=== PATIENT | female | born 2005 | race Caucasian/White ===

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

== ENCOUNTER 2025-01-24 14:20 | Emergency (ER) | payer BC, OTHER ==
--- OUTSIDE RECORDS SUMMARY | 2025-01-24 14:25 | XMS REPORT | Continuity of Care Document ---
Author Name Unknown Address [address] [place] [address] [facility] Address [address] [place] [address] Care Team Providers Care Cds Sales Advisor Name Role Phone Adeel Manning Primary Care Physician [phone] MITUL MEDINA Attending Clinician Unavailable ARTURO JACKSON Attending Clinician Unavailab Arturo Jarrett MD Attending Clinician NAZIA GRADY Attending Clinician UnavailNAZIA Moore Attending Clinician UnavailMonique Castro PTA Attending Clinician Unavail able Nazia Grady MD Attending Clinician [phone] IMTIAZ HILL Attending Clinician Unavailable Imtiaz Escalante Attending Clinician [phone] ARMANI MCGREGOR Attending Clinician Unavailable Quintin PTEwelina Attending Clinician Unavailab Damaris Arias PT Attending Clinician Unavailable KAYLIN HAYES Attending Clinician Unavailab Kaylin Levi DNP Attending Clinician Miryam HOUGH, Arturo Attending Clinician [phone] Montse Danielle LVN Attending Clinician [phone] Saad RN, Carmen Attending Clinician Unavail qing Jiménez MD PhD, Jordi Attending Clinician [phone] Lab, [facility] Attending Clinician Unavailable JOSE L BARRETT Attending Clinician UnavailMARITZA Han Attending Clinician Unavailab CURT Adamson Attending Clinician Unavailable Ebrahiflorencia SET UP PERSON, Curt Attending Clinician [phone] Unknown, Attending Attending Clinician Unavailab le Doctor Unassigned, Griswold Attending Clinician U navailable DALILA_GCBZW_Denisse_S Attending Clinician UnavailANGELA Carrillo Attending Clinician Unavailable RAFAT ROCK Attending Clinician Unavailable Pranav HOUGH, Rafat Attending Clinician [phone] Bear Melo MD Attending Clinician [phone] Provider, [facility] Attending Clinician Un available Iam Shelby Attending Clinician [phone] IAM MAZA Attending Clinician Unavailable IMTIAZ HILL Admitting Clinician Unavailable ARTURO JACKSON Admitting Clinician Unavailab evan Jackson MD, Arturo Admitting Clinician [phone] DALILA_GCBZW_Denisse_Kori Admitting Clinician UnavailRAFAT Figueroa Admitting Clinician Unavailable Payers Payer Name Policy Type Policy Number Effective Date Expirati on Date Source [employer] OPEN ACCESS/OPEN ACCESS PLUS [id number] 2016 00:00:00 [place] [id number] 2023 00:00:00 BCBS 2 [id number] 2023 00:00:[place] [id number] 2021 00:00:00 Problems Condition Name Condition Details Condition Category Status Onset Date Resolution Date Last Treatment Date Treating Clinician Comments Source Scoliosis deformity of spine Scoliosis Deformity of Spine Problem Active 2023-11 00:00: 00 [facility] Adolescent idiopathic scoliosis of thoracolum bar region Adolescent idiopathic scoliosis of thoracolum bar region Disease Active 4-30 00:00: 00 [facility] Left lower quadrant pain Left Lower Quadrant Pain Problem Active 4-17 00:00: 00 [facility] Mastodynia of bilateral breasts Mastodynia of Bilateral Breasts Problem Active 2022-11 1-06 00:00: 00 [facility] Irregular periods Irregular Periods Problem Active 2021-11 1-04 00:00: 00 [facility] Mild major depression , single episode Mild Major Depression , Single Episode Problem Active 7-08 00:00: 00 [facility] Primary dysmenorrh ea Primary Dysmenorrh ea Problem Active 5-17 00:00: 00 [facility] Venereal disease screening Venereal Disease Screening Problem Active 2020-11 1 00:00: 00 [facility] No known active problems No known active problems Disease [facility] Allergies, Adverse Reactions, Alerts Allergy Name Allergy Type Status Severity Reaction(s) Onset Date Inactive Date Treating Clinician Comments Source NO KNOWN ALLERGIE S Drug Class Active [facility] Social History Social Habit Start Date Stop Date Quantity Comments Source ASSERTION Possible Abigail Arboleda - External Sexual orientation K stephanie Arboleda - External Exposure to SARS-CoV-2 (event) Yes [facility] Gender identity [facility] Alcoholic beverage intake 2025-01-09 00:00:00 2025-01-09 00:00:00 Lifetime non-drinker (finding) [facility] History of Social function 2024-12-15 00:00:00 2024-12-15 00:00:00 Abigail Arboleda - External Tobacco use and exposure 2024-05-02 00:00:00 2024-05-02 00:00:00 User of smokeless tobacco [facility] Tobacco Comment 2024-05-02 00:00:00 2024-05-02 00:00:00 Vapes socially, wants to quit. [facility] Alcohol intake 2024-03-09 00:00:00 2024-03-09 00:00:00 Lifetime non-drinker (finding) [facility] Sex 2022-10-29 08:23:14 2022-10-29 08:23:14 Female (finding) Abigail Mast Sex assigned at 2005 00:00:00 2005 00:00:00 Abigail Mast Smoking Status Start Date Stop Date Source Tobacco smoking consumption unknown Abigail Rico darvin Never smoked tobacco [facility] Medications Ordered Medication Name Filled Medication Name Start Date Stop Date Current Medication? Ordering Clinician Indication Dosage Frequency Signature (SIG) Comments Components Source lidocain-me .salicyl-ca ps-menth (1ST MEDX-PATCH WITH LIDOCAINE) 4-20-0.025- 5 % PtMd 01-09 00:00: 00 01-09 00:00 :00 No [id number] 1{patch } Apply 1 Patch to area(s) once daily as needed (thoracic back pain). [facility] Multiple Vitamins-Mi nerals (WOMENS DAILY FORMULA OR) 12-15 09:16: 24 Yes Take by mouth. Abigail peter methylPREDN ISolone 4 MG oral Tablet Therapy Pack 12-15 00:00: 00 Yes [id number] 1{alyse} Take 1 alyse by mouth See Admin Instructio ns Use as directed. Abigail peter Triamcinolo ne Acetonide 0.1 % apply externally Cream 12-15 00:00: 00 01-13 05:59 :00 Yes [id number] Apply to rash twice a day. Abigail peter Loryna 3-0.02 MG oral Tablet 2023-11 00:00: 00 Yes 1{tbl} QD Take 1 tablet by mouth daily. Abigail peter famotidine (PEPCID AC) tablet 20 mg 05-05 01:00: 00 Yes 20mg 20 mg, Oral, BID, First dose on Graciela 05/04/24 at 1999, Until Discontinu ed, Routine [facility] docusate (COLACE) capsule 100 mg 05-04 05:00: 00 Yes 100mg [facility] bisacodyL (DULCOLAX) suppository 10 mg 05-04 05:00: 00 Yes 10mg [facility] Acetaminoph en (TYLENOL) 325 MG oral Tablet tablet 05-04 00:00: 00 12-15 00:00 :00 No 650mg Q6H Take 2 tablets (650 mg total) by mouth every 6 (six) hours. Abigail peter oxyCODONE 5 mg immediate release tablet 05-04 00:00: 00 05-12 04:59 :00 No [id number] 5mg Take 1 tablet by mouth every 6 (six) hours for 7 days. Indication s: acute pain [facility] docusate 100 mg capsule 05-04 00:00: 00 05-10 04:59 :00 No [id number] 100mg Take 1 capsule by mouth in the morning and 1 capsule in the evening. Do all this for 5 days. [facility] famotidine 20 mg tablet 05-04 00:00: 00 05-10 04:59 :00 No [id number] 20mg Take 1 tablet by mouth in the morning and 1 tablet in the evening. Do all this for 5 days. [facility] morpHINE (2 mg/mL) injection 4 mg 05-03 23:07: 46 05-05 23:06 :46 No 4mg 4 mg, Slow IV Push, Q4HPRN, Starting on Wed05/03/24 at 1807, Until Wed05/05/24 at 1806, Routine, Pain (scale 7-10) [facility] docusate (COLACE) capsule 100 mg 05-03 23:07: 26 Yes 100mg 100 mg, Oral, BIDPRN, Starting on Wed05/03/24 at 1807, Until Discontinu ed, Routine, Constipati on [facility] ondansetron (ZOFRAN (PF)) injection 5.46 mg 05-03 15:21: 26 Yes .1mg/kg 5.46 mg (rounded from 5.45 mg = 0.1 mg/kg ?54.5 kg), Slow IV Push, Q6HPRN, Starting on Wed05/03/24 at 1021, Until Discontinu ed, Routine, Nausea and Vomiting (N/V) [facility] oxyCODONE immediate release tablet 5 mg 05-02 12:15: 00 Yes 5mg 5 mg, Oral, Q6H, First dose on Wed05/02/24 at 0715, Until Discontinu ed, Routine, event staff member approving Restricted medication : ARTURO BUTTERFIELD [facility] acetaminoph en (TYLENOL) tablet 650 mg 05-02 12:15: 00 Yes 650mg 650 mg, Oral, Q6H, First dose on Wed05/02/24 at 0715, Until Discontinu ed, Routine [facility] famotidine (PEPCID (PF)) injection 20 mg 05-02 01:00: 00 05-04 13:42 :57 No 20mg 20 mg, Intravenou s, Q12H, First dose on Wed05/01/24 at 2000, Until Discontinu ed, 2 mL [facility] ketorolac (TORADOL) injection 27.2 mg 05-01 23:00: 00 05-03 18:18 :00 No .5mg/kg 27.2 mg (rounded from 27.25 mg = 0.5 mg/kg ?54.5 kg), Slow IV Push, Q6H, 8 doses, First dose on Wed05/01/24 at 1800, Last dose on Wed05/03/24 at 1200, Routine [facility] lactated ringers IV infusion 1,000 mL 05-01 22:30: 00 Yes 1000mL at 75 mL/hr, 1,000 mL, IV Infusion, CONTINUOUS , Starting on Wed05/01/24 at 1730, Until Discontinu ed, Routine, PACU [facility] D5W 0.9% NaCl (NS) 1 L + KCL 20 mEq 05-01 22:30: 00 Yes 50mL/h 50 mL/hr, IV Infusion, CONTINUOUS , Starting on Wed05/01/24 at 1730, Until Discontinu ed, Routine [facility] HYDROcodone -acetaminop hen (NORCO 5) 5-325 mg tablet 1 tablet 05-01 22:30: 00 05-01 22:52 :00 No 1{tbl} 1 tablet, Oral, ONCE, 1 dose, On Wed05/01/24 at 1730, Routine, PACU [facility] HYDROmorpho ne (DILAUDID) injection 0.5 mg 05-01 22:17: 41 05-02 01:46 :13 No .5mg 0.5 mg, Slow IV Push, Q5MIN PRN, 10 doses, Starting on Wed05/01/24 at 1717, Until Wed05/01/24 at 2046, Routine, Pain (scale 7-10), PACU, Use approved by (Faculty): PACU USE -ANESTHESI A SERVICE-HY DROMORPHON E INJECTIONS , Is this medication approved by a Faculty level provider? Yes, event staff member approving Restricted medication : PACU RECOVERY [facility] naloxone (NARCAN) injection 0.2 mg 05-01 22:14: 43 Yes .2mg [facility] diazePAM (VALIUM) tablet 5 mg 05-01 22:14: 43 Yes 5mg 5 mg, Oral, Q6HPRN, Starting on Wed05/01/24 at 1714, Until Discontinu ed, Routine, Anxiety, Muscle Spasms [facility] flumazeniL (ROMAZICON) injection 0.2 mg 05-01 22:14: 43 Yes .2mg [facility] diphenhydrA MINE (BENADRYL) injection 25 mg 05-01 22:14: 43 Yes 25mg [facility] morpHINE injection 4 mg 05-01 22:14: 43 05-03 22:13 :43 No 4mg 4 mg, Slow IV Push, Q4HPRN, Starting on Wed05/01/24 at 1714, Until Wed05/03/24 at 1713, Routine, Pain (scale 7-10) [facility] ondansetron (ZOFRAN (PF)) injection 5.46 mg 05-01 22:14: 43 05-03 15:21 :37 No .1mg/kg 5.46 mg (rounded from 5.45 mg = 0.1 mg/kg ?54.5 kg), Slow IV Push, Q8HPRN, Starting on Wed05/01/24 at 1714, Until Wed05/03/24 at 1021, Routine, Nausea and Vomiting (N/V) [facility] vancomycin (VANCOCIN) injection 05-01 21:45: 00 Yes PRN, Starting on Wed05/01/24 at 1645, Until Discontinu ed, PETEY, Intra-op [facility] ondansetron (ZOFRAN (PF)) injection 05-01 21:18: 00 05-01 22:30 :11 No Slow IV Push, ONCE INTRA PROCEDURE, Starting on Wed05/01/24 at 1618, Until Wed05/01/24 at 1730, Routine, Intra-op [facility] BUPivacaine liposome (PF) (EXPAREL (PF)) 1.3 % (13.3 mg/mL) 266 mg, NaCl 0.9% (NS) 20 mL 05-01 20:25: 00 Yes PRN, Starting on Wed05/01/24 at 1525, Intra-op [facility] albumin (ALBUTEIN 5 %) 5 % injection 05-01 14:47: 00 05-01 22:30 :11 No IV Infusion, CONTINUOUS PRN, Starting on Wed05/01/24 at 0947, Until Wed05/01/24 at 1730, Intra-op [facility] heparin 10,000 units in NS 1000 mL for vascular 05-01 14:16: 00 Yes PRN, Starting on Wed05/01/24 at 0916, Intra-op [facility] tranexamic acid (CYKLOKAPRO N) 1,000 mg in NaCl 0.9% (NS) 250 mL infusion 05-01 14:00: 00 05-01 22:30 :11 No IV Infusion, CONTINUOUS PRN, Starting on Wed05/01/24 at 0900, Until Wed05/01/24 at 1730, Routine, Intra-op [facility] rocuronium (ZEMURON) injection 05-01 13:48: 00 05-01 22:30 :12 No IV Push, ONCE INTRA PROCEDURE, Starting on Wed05/01/24 at 0848, Until Wed05/01/24 at 1730, Routine, Intra-op [facility] glycopyrrol ate (ROBINUL) injection 05-01 13:47: 00 05-01 22:30 :12 No Intravenou s, ONCE INTRA PROCEDURE, Starting on Wed05/01/24 at 0847, Until Wed05/01/24 at 1730, Routine, Intra-op [facility] PHENYLephri ne 1000 mcg/10 mL in 0.9% NaCl syringe 05-01 13:46: 00 05-01 22:30 :12 No Slow IV Push, ONCE INTRA PROCEDURE, Starting on Wed05/01/24 at 0846, Until Wed05/01/24 at 1730, Routine, Intra-op [facility] lidocaine-e pinephrine (XYLOCAINE WITH EPINEPHRINE ) 1 %-1:100,000 injection 05-01 13:39: 00 Yes PRN, Starting on Wed05/01/24 at 0839, Until Discontinu ed, Routine, Intra-op [facility] ketamine (KETALAR) injection 05-01 13:33: 00 05-01 22:30 :12 No Intravenou s, ONCE INTRA PROCEDURE, Starting on Wed05/01/24 at 0833, Until Wed05/01/24 at 1730, Routine, Intra-op [facility] ePHEDrine 25 mg/5 mL (5 mg/mL) syringe 05-01 13:31: 00 05-01 22:30 :12 No Intravenou s, ONCE INTRA PROCEDURE, Starting on Wed05/01/24 at 0831, Until Wed05/01/24 at 1730, Routine, Intra-op [facility] tranexamic acid (CYKLOKAPRO N) 1,000 mg in NaCl 0.9% (NS) 100 mL piggyback 05-01 13:17: 00 05-01 22:30 :12 No IV Piggyback, CONTINUOUS PRN, Starting on Wed05/01/24 at 0817, Until Wed05/01/24 at 1730, Administer over 60 Minutes, 100 mL, Intra-op [facility] ceFAZolin (ANCEF) injection 05-01 13:14: 00 05-01 22:30 :12 No Intravenou s, ONCE INTRA PROCEDURE, Starting on Wed05/01/24 at 0814, Until Wed05/01/24 at 1730, PETEY, Intra-op [facility] dexamethaso ne (DECADRON PHOSPHATE) injection 05-01 12:34: 00 05-01 22:30 :12 No IV Push, ONCE INTRA PROCEDURE, Starting on Wed05/01/24 at 0734, Until Wed05/01/24 at 1730, Routine, Intra-op [facility] lactated ringers IV infusion 05-01 12:33: 00 05-01 22:30 :12 No IV Infusion, CONTINUOUS PRN, Starting on Wed05/01/24 at 0733, Until Wed05/01/24 at 1730, Routine, Intra-op [facility] SUFentanil (SUFENTA) injection 05-01 12:33: 00 05-01 22:30 :12 No Intravenou s, CONTINUOUS PRN, Starting on Wed05/01/24 at 0733, Until Wed05/01/24 at 1730, Routine, Intra-op [facility] propofoL IV infusion 05-01 12:33: 00 05-01 22:30 :12 No Intravenou s, CONTINUOUS PRN, Starting on Wed05/01/24 at 0733, Until Wed05/01/24 at 1730, Routine, Intra-op [facility] succinylcho line (QUELICIN) injection 05-01 12:26: 00 05-01 22:30 :12 No IV Push, ONCE INTRA PROCEDURE, Starting on Wed05/01/24 at 0726, Until Wed05/01/24 at 1730, Routine, Intra-op [facility] lactated ringers IV infusion 05-01 12:25: 00 05-01 22:30 :12 No IV Infusion, CONTINUOUS PRN, Starting on Wed05/01/24 at 0725, Until Wed05/01/24 at 1730, Routine, Intra-op [facility] lidocaine 1% (XYLOCAINE) 100 mg/10 mL (1 %) injection 05-01 12:25: 00 05-01 22:30 :12 No Intravenou s, ONCE INTRA PROCEDURE, Starting on Wed05/01/24 at 0725, Until Wed05/01/24 at 1730, Routine, Intra-op [facility] midazolam (VERSED) injection 05-01 12:12: 00 05-01 22:30 :12 No IV Push, ONCE INTRA PROCEDURE, Starting on Wed05/01/24 at 0712, Until Wed05/01/24 at 1730, Routine, Intra-op [facility] acetaminoph en (TYLENOL) tablet 1,000 mg 05-01 10:15: 00 05-01 11:18 :00 No 1000mg 1,000 mg, Oral, ONCE, 1 dose, On Wed05/01/24 at 0515, Routine, DSU Pre-op [facility] VAZQUEZ, 28, 3-0.02 mg per tablet 3-12 00:00: 00 05-04 00:00 :00 No 1{tbl} Take 1 tablet by mouth in the morning. [facility] Ciprofloxac in HCl 0.3 % ophthalmic Solution 2-26 00:00: 00 01-22 05:59 :00 No [id number] 2[drp] Apply 2 drops to eye every 4 (four) hours for 5 days Drop into affected eye.. Abigail mcgill 250 MG oral Tablet 2022-11 00:00: 00 10-10 05:59 :00 No Take only after 5 days if symptoms still persisting . Take 2 tablets by mouth on day 1 then 1 tablet by mouth daily for 4 days thereafter .. Abigail peter ketorolac (TORADOL) injection 30 mg 05-19 11:15: 00 05-19 10:45 :00 No 30mg 30 mg, Slow IV Push, ONCE, 1 dose, On Wed05/19/23 at 0615, PETEY [facility] iopamidol (ISOVUE 370-500 mL) injection 70 mL 05-19 10:45: 00 05-19 09:54 :00 No [id number] 70mL 70 mL, Intravenou s, ONCE, 1 dose, On Wed05/19/23 at 0545, Routine [facility] Famotidine (PEPCID) 20 MG oral tablet 05-19 00:00: 00 12-15 00:00 :00 No 20mg Q.5D Take 1 tablet (20 mg total) by mouth 2 times daily. Abigail peter naproxen 500 mg tablet 05-19 00:00: 00 05-30 04:59 :00 No [id number] 500mg Take 1 tablet by mouth in the morning and 1 tablet in the evening. Take with meals. Do all this for 10 days. [facility] fluticasone propionate 50 mcg/actuati on nasal spray 02-16 00:00: 00 05-04 00:00 :00 No [id number] 1 spray each nostril twice a day for 5 days then daily [facility] albuterol sulfate HFA 90 mcg/actuati on aerosol inhaler INHALE 1-2 PUFFS BY MOUTH EVERY 4-6 HOURS NEEDED albuterol sulfate HFA 90 mcg/actuati on aerosol inhaler INHALE 1-2 PUFFS BY MOUTH EVERY 4-6 HOURS NEEDED No albuterol sulfate HFA 90 mcg/actuat ion aerosol inhaler INHALE 1-2 PUFFS BY MOUTH EVERY 4-6 HOURS NEEDED [facility] Loryna (28) 3 mg-0.02 mg tablet TAKE 1 TABLET BY MOUTH EVERY DAY Loryna (28) 3 mg-0.02 mg tablet TAKE 1 TABLET BY MOUTH EVERY DAY No Loryna (28) 3 mg-0.02 mg tablet TAKE 1 TABLET BY MOUTH EVERY DAY [facility] Vital Signs Vital Name Observation Time Observation Value Comments S ource Systolic blood pressure 2025-01-09 22:10:00 118 mm[Hg] [facility] Diastolic blood pressure 2025-01-09 22:10:00 77 mm[Hg] [facility] Heart rate 2025-01-09 22:10:00 137 /min [facility] Body temperature 2025-01-09 22:10:00 36.89 Cherelle [facility] Body height 2025-01-09 22:10:00 175.3 cm [facility] Body weight 2025-01-09 22:10:00 58.333 kg [facility] BMI 2025-01-09 22:10:00 18.99 kg/m2 [facility] Systolic blood pressure 2025-01-04 19:50:00 100 mm[Hg] [facility] Diastolic blood pressure 2025-01-04 19:50:00 64 mm[Hg] [facility] Heart rate 2025-01-04 19:50:00 71 /min [facility] Body temperature 2025-01-04 19:50:00 36.89 Cherelle [facility] Respiratory rate 2025-01-04 19:50:00 18 /min [facility] Oxygen saturation in Arterial blood by Pulse oximetry 2025-01-04 19:50:00 100 /min [facility] Body height 2025-01-04 17:58:00 175.3 cm [facility] Body weight 2025-01-04 17:58:00 56.7 kg [facility] BMI 2025-01-04 17:58:00 18.46 kg/m2 [facility] Systolic blood pressure 2024-12-15 15:10:00 100 mm[Hg] Abigail Payan - External Diastolic blood pressure 2024-12-15 15:10:00 68 mm[Hg] Abigail Clarko ld - External Heart rate 2024-12-15 15:10:00 79 /min Izabel Arboleda - External Body temperature 2024-12-15 15:10:00 36.5 Cherelle Abigail Arboleda - External Respiratory rate 2024-12-15 15:10:00 14 /min Abigail Arboleda - External Body height 2024-12-15 15:10:00 175.3 cm Juany oliveros Seybtayo - External Body weight 2024-12-15 15:10:00 58.06 kg Juany oliveros Seybold - External BMI 2024-12-15 15:10:00 18.90 kg/m2 Juany Arboleda - External Oxygen saturation in Arterial blood by Pulse oximetry 2024-12-15 15:10:00 94 /min Abigail Payan ld - External Systolic blood pressure 2024-11-09 17:37:00 100 mm[Hg] [facility] Diastolic blood pressure 2024-11-09 17:37:00 62 mm[Hg] [facility] Heart rate 2024-11-09 17:37:00 85 /min [facility] Body temperature 2024-11-09 17:37:00 36.11 Cherelle [facility] Body height 2024-11-09 17:37:00 175.3 cm [facility] Body weight 2024-11-09 17:37:00 56.246 kg [facility] BMI 2024-11-09 17:37:00 18.31 kg/m2 [facility] Body Weight 2024-09-28 00:00:00 120.6 [lb_av] [facility] BMI (Body Mass Index) 2024-09-28 00:00:00 17.8 kg/m2 [facility] BP Diastolic 2024-09-28 00:00:00 66 mm[Hg] [facility] BP Systolic 2024-09-28 00:00:00 105 mm[Hg] [facility] Height 2024-09-28 00:00:00 69 [in_i] [facility] Systolic blood pressure 2024-08-10 20:14:00 97 mm[Hg] [facility] Diastolic blood pressure 2024-08-10 20:14:00 60 mm[Hg] [facility] Heart rate 2024-08-10 20:14:00 73 /min [facility] Body temperature 2024-08-10 20:14:00 36.61 Cherelle [facility] Body height 2024-08-10 20:14:00 175.3 cm [facility] Body weight 2024-08-10 20:14:00 55.203 kg [facility] BMI 2024-08-10 20:14:00 17.97 kg/m2 [facility] Body mass index (BMI) [Percentile] Per age and sex 2024-08-10 20:14:00 6.50 % [facility] Systolic blood pressure 2024-06-08 20:14:00 90 mm[Hg] [facility] Diastolic blood pressure 2024-06-08 20:14:00 55 mm[Hg] [facility] Heart rate 2024-06-08 20:14:00 84 /min [facility] Body temperature 2024-06-08 20:14:00 36.39 Cherelle [facility] Body height 2024-06-08 20:14:00 172.7 cm [facility] Body weight 2024-06-08 20:14:00 53.978 kg [facility] BMI 2024-06-08 20:14:00 18.09 kg/m2 [facility] Body mass index (BMI) [Percentile] Per age and sex 2024-06-08 20:14:00 7.65 % [facility] Systolic blood pressure 2024-05-11 20:21:00 89 mm[Hg] [facility] Diastolic blood pressure 2024-05-11 20:21:00 58 mm[Hg] [facility] Heart rate 2024-05-11 20:21:00 80 /min [facility] Body temperature 2024-05-11 20:21:00 35.83 Cherelle [facility] Body height 2024-05-11 20:21:00 172.7 cm [facility] Body weight 2024-05-11 20:21:00 55.339 kg [facility] BMI 2024-05-11 20:21:00 18.55 kg/m2 [facility] Body mass index (BMI) [Percentile] Per age and sex 2024-05-11 20:21:00 12.01 % [facility] Systolic blood pressure 2024-05-04 13:00:00 108 mm[Hg] [facility] Diastolic blood pressure 2024-05-04 13:00:00 48 mm[Hg] [facility] Heart rate 2024-05-04 13:00:00 58 /min [facility] Body temperature 2024-05-04 13:00:00 36.5 Cherelle [facility] Respiratory rate 2024-05-04 13:00:00 20 /min [facility] Oxygen saturation in Arterial blood by Pulse oximetry 2024-05-04 13:00:00 92 /min [facility] Body height 2024-05-01 10:53:00 172.7 cm [facility] Body weight 2024-05-01 10:53:00 54.5 kg [facility] BMI 2024-05-01 10:53:00 18.27 kg/m2 [facility] Body mass index (BMI) [Percentile] Per age and sex 2024-05-01 10:53:00 9.36 % [facility] Systolic blood pressure 2024-05-01 22:23:00 106 mm[Hg] [facility] Diastolic blood pressure 2024-05-01 22:23:00 61 mm[Hg] [facility] Heart rate 2024-05-01 22:23:00 76 /min [facility] Body temperature 2024-05-01 22:23:00 36.11 Cherelle [facility] Respiratory rate 2024-05-01 22:23:00 17 /min [facility] Oxygen saturation in Arterial blood by Pulse oximetry 2024-05-01 22:23:00 100 /min [facility] Body height 2024-05-01 10:53:00 172.7 cm [facility] Body weight 2024-05-01 10:53:00 54.5 kg [facility] BMI 2024-05-01 10:53:00 18.27 kg/m2 [facility] Body mass index (BMI) [Percentile] Per age and sex 2024-05-01 10:53:00 9.36 % [facility] Systolic blood pressure 2024-03-09 13:58:00 102 mm[Hg] [facility] Diastolic blood pressure 2024-03-09 13:58:00 69 mm[Hg] [facility] Heart rate 2024-03-09 13:58:00 82 /min Un[facility] Body temperature 2024-03-09 13:58:00 35.94 Cherelle [facility] Body height 2024-03-09 13:58:00 172.7 cm [facility] Body weight 2024-03-09 13:58:00 54.432 kg [facility] BMI 2024-03-09 13:58:00 18.25 kg/m2 [facility] Body mass index (BMI) [Percentile] Per age and sex 2024-03-09 13:58:00 9.47 % [facility] BP Diastolic 2024-03-08 00:00:00 67 mm[Hg] [facility] BMI (Body Mass Index) 2024-03-08 00:00:00 18 kg/m2 [facility] Height 2024-03-08 00:00:00 69 [in_i] [facility] BP Systolic 2024-03-08 00:00:00 114 mm[Hg] [facility] Body Weight 2024-03-08 00:00:00 121.6 [lb_av] [facility] Systolic blood pressure 2023-08-31 14:44:00 99 mm[Hg] [facility] Diastolic blood pressure 2023-08-31 14:44:00 64 mm[Hg] [facility] Heart rate 2023-08-31 14:44:00 88 /min [facility] Body temperature 2023-08-31 14:44:00 36.72 Cherelle [facility] Respiratory rate 2023-08-31 14:44:00 18 /min [facility] Body weight 2023-08-31 14:44:00 56.972 kg [facility] Oxygen saturation in Arterial blood by Pulse oximetry 2023-08-31 14:44:00 98 /min [facility] Systolic blood pressure 2023-05-19 11:00:00 103 mm[Hg] [facility] Diastolic blood pressure 2023-05-19 11:00:00 64 mm[Hg] [facility] Heart rate 2023-05-19 11:00:00 54 /min [facility] Respiratory rate 2023-05-19 11:00:00 19 /min [facility] Oxygen saturation in Arterial blood by Pulse oximetry 2023-05-19 11:00:00 99 /min [facility] Body temperature 2023-05-19 05:30:00 37.22 Cherelle [facility] Body height 2023-05-19 05:30:00 175.3 cm [facility] Body weight 2023-05-19 05:30:00 55.702 kg [facility] BMI 2023-05-19 05:30:00 18.13 kg/m2 [facility] Body mass index (BMI) [Percentile] Per age and sex 2023-05-19 05:30:00 10.46 % [facility] Systolic blood pressure 2021-02-16 21:07:00 124 mm[Hg] [facility] Diastolic blood pressure 2021-02-16 21:07:00 75 mm[Hg] [facility] Heart rate 2021-02-16 21:07:00 87 /min [facility] Body temperature 2021-02-16 21:07:00 36.83 Cherelle [facility] Respiratory rate 2021-02-16 21:07:00 20 /min [facility] Body height 2021-02-16 21:07:00 172.7 cm [facility] Body weight 2021-02-16 21:07:00 57.777 kg [facility] BMI 2021-02-16 21:07:00 19.37 kg/m2 [facility] Oxygen saturation in Arterial blood by Pulse oximetry 2021-02-16 21:07:00 100 /min [facility] Procedures Procedure Date / Time Performed Performing Clinician Source POCT TEST 2025-01-04 18:33:00 Imtiaz Hill [facility] LIPASE 2025-01-04 18:31:00 Imtiaz Hill [facility] TROPONIN I 2025-01-04 18:31:00 Imtiaz Hill [facility] COMP. METABOLIC PANEL (97031) 2025-01-04 18:31:00 Imtiaz Hill [facility] CBC WITH DIFF 2025-01-04 18:31:00 Imtiaz Hill [facility] D-DIMER 2025-01-04 18:31:00 Imtiaz Hill [facility] URINALYSIS 2025-01-04 18:31:00 Imtiaz Hill [facility] XR CHEST 2 2025-01-04 18:16:59 Imtiaz Hill [facility] XR SCOLIOSIS SURVEY 2 2024-11-09 17:25:50 Haleigh salvador [facility] XR SCOLIOSIS SURVEY 2 2024-08-10 19:09:09 Haleigh salvador [facility] XR SCOLIOSIS SURVEY 2 2024-06-08 20:26:54 Kaylin Hayes [facility] CBC WITHOUT DIFF 2024-05-04 06:00:00 [facility] PREPARE PACKED RBC 2024-05-03 14:43:50 [facility]OS[facility] SURVE[facility] 2 2024-05-03 14:20:00 Yash Rodarte [facility] CBC WITHOUT DIFF 2024-05-03 12:27:00 Claus Aguila [facility] PHOSPHORUS 2024-05-02 11:51:00 Yash Rodarte [facility] MAGNESIUM 2024-05-02 11:51:00 Yash Rodarte [facility] BASIC METABOLIC PANEL (NA, K, CL, CO2, GLUCOSE, BUN, CREATININE, CA) 2024-05-02 11:51:00 [facility] WITH [facility]FF 2024-05-02 11:51:00 aYsh Rodarte [facility] PHOSPHORUS 2024-05-02 11:51:00 Yash Rodarte [facility] MAGNESIUM 2024-05-02 11:51:00 Yash Rodarte [facility] BASIC METABOLIC PANEL (NA, K, CL, CO2, GLUCOSE, BUN, CREATININE, CA) 2024-05-02 11:51:00 Cayden [facility] CBC WITH DIFF 2024-05-02 11:51:00 Cayden [facility] CBC WITH DIFF 2024-05-01 23:13:00 Cayden [facility] CBC WITH DIFF 2024-05-01 23:13:00 Cayden [facility] FL TIME OR (NON-REPORTABLE) 2024-05-01 21:14:11 Miryam [facility] FL TIME OR (NON-REPORTABLE) 2024-05-01 21:14:11 Miryam [facility] VBG+VCOOX+NA+K+GLU+CA2+ 2024-05-01 20:30:00 Rose Mary delgadillo [facility] VBG+VCOOX+NA+K+GLU+CA2+ 2024-05-01 18:21:00 Rose Mary delgadillo [facility] FL TIME OR (NON-REPORTABLE) 2024-05-01 18:00:00 Miryam [facility] FL TIME OR (NON-REPORTABLE) 2024-05-01 18:00:00 Miryam [facility] VBG+VCOOX+NA+K+GLU+CA2+ 2024-05-01 16:28:00 Rose Mary delgadillo [facility] VBG+VCOOX+NA+K+GLU+CA2+ 2024-05-01 15:41:00 Rose Mary delgadillo [facility] INTUBATION 2024-05-01 12:28:00 John Gan [facility] 14068 - DE ARTHRODESIS POSTERIOR SPINAL DFRM 13+ VRT SG 2024-05-01 12:03:00 Miryam [facility] 68317 - DE AUTOGRAFT SPINE SURGERY LOCAL FROM SAME INCISION 2024-05-01 12:03:00 Miryam [facility] 34710 - DE STEREOTACTIC COMPUTER ASSISTED PX SPINAL 2024-05-01 12:03:00 Miryam [facility] 57451 - DE ALLOGRAFT FOR SPINE SURGERY ONLY MORSELIZED 2024-05-01 12:03:00 Miryam [facility] 13482 - DE OSTEOTOMY SPINE PST/PSTLAT APPR 1 VRT SGM THRC 2024-05-01 12:03:00 Miryam [facility] 29657 - DE OSTEOT SPI PST/PSTLAT APPR 1 VRT SGM EA VRT SG 2024-05-01 12:03:00 Miryam [facility] 85746 - DE POSTERIOR SEGMENTAL INSTRUMENTATION 13/> VRT SE 2024-05-01 12:03:00 Miryam [facility] 41813 - [place] ARTHRODESIS POSTERIOR SPINAL DFRM 13+ VRT [facility] 2024-05-01 12:03:00 Miryam [facility] 25423 - DE AUTOGRAFT SPINE SURGERY LOCAL FROM SAME INCISION 2024-05-01 12:03:00 Miryam [facility] 74780 - DE STEREOTACTIC COMPUTER ASSISTED PX SPINAL 2024-05-01 12:03:00 Miryam [facility] 12248 - DE ALLOGRAFT FOR SPINE SURGERY ONLY MORSELIZED 2024-05-01 12:03:00 Miryam [facility] 18978 - DE OSTEOTOMY SPINE PST/PSTLAT APPR 1 VRT SGM THRC 2024-05-01 12:03:00 Carloskristine [facility] 23950 - DE OSTEOT SPI PST/PSTLAT APPR 1 VRT SGM EA VRT SGM 2024-05-01 12:03:00 Miryam [facility] 94335 - DE POSTERIOR SEGMENTAL INSTRUMENTATION 13/> VRT SE 2024-05-01 12:03:00 Miryam [facility] HB ABO GROUPING 2024-05-01 11:15:00 Estrella [facility] HB ABO GROUPING 2024-05-01 11:15:00 Estrella [facility] POCT TEST 2024-05-01 10:45:00 Estrella [facility] POCT TEST 2024-05-01 10:45:00 Estrella [facility] Correction of Scoliosis 2024-05-01 00:00:00 [facility] XR SCOLIOSIS SURVEY 2 VW 2024-03-09 13:57:31 Haleigh salvador [facility] POCT MOLECULAR FLU 2023-08-31 15:04:00 Unknown, Attend [facility] POCT MOLECULAR STREP 2023-08-31 14:50:00 Unknown, Atte pauline [facility] CONSENT/REFUSAL FOR DIAGNOSIS AND TREATMENT 2023-08-31 14:38:41 Doctor Unassigned, Griswold [facility] ASSIGNMENT OF BENEFITS 2023-06-07 20:05:04 Docto r Unassigned, Griswold [facility] POCT TEST 2023-05-19 10:44:00 Jose Rock [facility] URINALYSIS 2023-05-19 10:17:00 Rafat Rock [facility] TROPONIN I 2023-05-19 10:11:00 Rafat Rock [facility] COMP. METABOLIC PANEL (05841) 2023-05-19 10:11:00 Rafat Rock [facility] CBC WITH DIFF 2023-05-19 10:11:00 Rafat Rock [facility] PROTHROMBIN TIME / INR 2023-05-19 10:11:00 Seun Rock [facility] ACTIVATED PARTIAL THRMPLAS OSVALDO 2023-05-19 10:11:00 Rafat Rock [facility] ASSIGNMENT OF BENEFITS 2023-05-19 06:34:25 Docto r Unassigned, Griswold [facility] NOTICE OF PRIVACY PRACTICES 2023-05-19 05:28:19 Doctor Unassigned, Griswold [facility] CONSENT/REFUSAL FOR DIAGNOSIS AND TREATMENT 2023-05-19 05:25:19 Doctor Unassigned, Griswold [facility] POCT GRP A STREP (MOLECULAR) 2021-02-16 21:19:00 Bear Melo [facility] Procedure on Knee [facility] En[facility] Start Date/Time End Date/Time Encounter Type Admission Type Attending [facility] Care Facility Care Department Encounter ID Source 2021-06-13 14:51:34 Outpatient MITUL MEDINA [facility] [id number] [facility] 2025-01-09 16:46:41 2025-01-09 23:59:00 Outpatient R [facility] [id number] [facility] 2025-01-09 16:46:41 2025-01-09 23:59:00 Hospital Encounter Arturo Jackson [facility] 1.2.840.114 350.1.13.10 4.2.7.2.686 [id number] [facility] 2025-01-09 16:00:00 2025-01-09 17:25:01 Office Visit Arturo Jackson [facility] 1.2.840.114 350.1.13.10 4.2.7.2.686 [id number] [facility] 2025-01-08 14:30:00 2025-01-08 15:49:30 Outpatient R NAZIA [facility] [id number] [facility] 2025-01-08 14:30:00 2025-01-08 15:49:30 Ancillary Visit Monique Champagne Craig L Trevino, Roxanne [facility] 1..840.114 350.1.13.10 4.2.7.2.686 [id number] [facility] 2025-01-04 12:00:00 2025-01-04 13:52:00 Emergency X IMTIAZ HILL [facility] ERT [id number] [facility] 2025-01-04 12:00:00 2025-01-04 13:52:00 Emergency Imtiaz Hill T [facility] 1.840.114 350.1.13.10 4.2.7.2.686 [id number] [facility] 2025-01-04 00:00:00 2025-01-04 00:00:00 Outpatient ARMANI MCGREGOR [id number] Abigail Arboleda 2024-12-26 08:15:00 2024-12-26 08:53:56 Ancillary Visit Ewelina Ribeiro Craig L Castro, [facility] 1..840.114 350.1.13.10 4.2.7.2.686 [id number] [facility] 2024-12-22 13:00:00 2024-12-22 13:52:11 Outpatient R NAZIA GR[facility] [id number] [facility] 2024-12-22 13:00:00 2024-12-22 13:52:11 Ancillary Visit Damaris Guan Craig L Ifurung, Aljude Leandre N [facility] 1..840.114 350.1.13.10 4.2.7.2.686 [id number] [facility] 2024-12-15 09:00:00 2024-12-15 09:00:00 Outpatient ARMANI MCGREGOR [id number] Abigail Arboleda 2024-11-09 11:16:40 2024-11-09 23:59:00 Outpatient R ARTURO JACKSON [facility] [id number] [facility] 2024-11-09 11:16:40 2024-11-09 23:59:00 Hospital Encounter Arturo [facility] 1.2.840.114 350.1.13.10 4.2.7.2.686 [id number] [facility] 2024-11-09 11:30:00 2024-11-09 12:05:41 Office Visit Arturo Jackson [facility] 1.2840.114 350.1.13.10 4.2.7.2.686 [id number] [facility] 2024-09-28 00:00:00 2024-09-28 00:00:00 Latonia Moore, SET UP PERSON: [address] [place], [place] [address], [place] [address] , Ph. [facility] - GC_GCBZW_La [facility]* [id number] [facility] 2024-08-10 13:56:04 2024-08-10 23:59:00 Outpatient R ARTURO JACKSON [facility] [id number] [facility] 2024-08-10 13:56:04 2024-08-10 23:59:00 Hospital Encounter Arturo Jackson [facility] 1.2.840.114 350.1.13.10 4.2.7.2.686 [id number] [facility] 2024-08-10 14:15:00 2024-08-10 15:32:20 Office Visit Arturo Jackson [facility] 1.2.840.114 350.1.13.10 4.2.7.2.686 [id number] [facility] 2024-08-10 00:00:00 2024-08-10 07:23:58 Abstract Arturo Jackson [facility] 1.2.840.114 350.1.13.10 4.2.7.2.686 [id number] [facility] 2024-06-08 15:16:27 2024-06-08 23:59:00 Outpatient R [facility] [id number] [facility] 2024-06-08 15:16:27 2024-06-08 23:59:00 Hospital Encounter [facility] 1.2.840.114 350.1.13.10 4.2.7.2.686 [id number] [facility] 2024-06-08 15:40:00 2024-06-08 15:59:42 Office Visit [facility] 1.2.840.114 350.1.13.10 4.2.7.2.686 [id number] [facility] 2024-05-16 00:00:00 2024-05-22 17:09:06 [facility] 1.2.840.114 350.1.13.10 4.2.7.2.686 [id number] [facility] 2024-05-16 00:00:00 2024-05-16 09:27:55 [facility]phone [facility] [place] [facility] 1.2.840.114 350.1.13.10 4.2.7.2.686 [id number] [facility] 2024-05-11 15:40:00 2024-05-11 15:40:00 [facility] 1.2.840.114 350.1.13.10 4.2.7.2.686 [id number] [facility] 2024-05-11 15:40:00 2024-05-11 15:30:27 [facility] [id number] [facility] 2024-05-05 00:00:00 2024-05-08 16:01:59 Transition of Care Montse Danielle 1.2.840.114 350.1.13.10 4.2.7.2.686 [id number] [facility] 2024-05-01 05:37:00 2024-05-04 11:21:00 Inpatient [facility] [id number] [facility] 2024-05-01 05:37:00 2024-05-04 11:21:[address] [facility] 1.2.840.114 350.1.13.10 4.2.7.2.686 [id number] [facility] 2024-05-01 07:18:00 2024-05-01 17:30:00 [facility] 1.2.840.114 350.1.13.10 4.2.7.2.686 [id number] [facility] 2024-05-01 07:00:00 2024-05-01 17:24:[address] [facility] 1.2.840.114 350.1.13.10 4.2.7.2.686 [id number] [facility] 2024-04-03 00:00:00 2024-04-07 11:47:46 [facility] 1.2.840.114 350.1.13.10 4.2.7.2.686 [id number] [facility] 2024-03-21 00:00:00 2024-03-21 00:00:00 Prep For Surgery [facility] 1.2.840.114 350.1.13.10 4.2.7.2.686 [id number] [facility] 2024-03-14 13:15:58 2024-03-14 23:59:00 [facility] [id number] [facility] 2024-03-14 13:15:58 2024-03-14 23:59:00 [facility] 1.2.840.114 350.1.13.10 4.2.7.2.686 [id number] [facility] 2024-03-14 00:00:00 2024-03-14 00:00:[address] [facility] AT [facility] 1.2.840.114 350.1.13.10 4.2.7.2.686 [id number] [facility] 2024-03-14 00:00:00 2024-03-14 00:00:00 Letter (Out) [facility] AT [facility] 1.2.840.114 350.1.13.10 4.2.7.2.686 [id number] [facility] 2024-03-10 00:00:00 2024-03-10 00:00:[address] [facility] AT [facility] 1.2.840.114 350.1.13.10 4.2.7.2.686 [id number] [facility] 2024-03-09 10:04:56 2024-03-09 23:59:00 Hospital Encounter 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 1.2.840.114 350.1.13.10 4.2.7.2.686 [id number] [facility] 2024-03-09 08:45:00 2024-03-09 10:15:51 Outpatient [facility] [id number] [facility] 2024-03-09 08:45:00 2024-03-09 10:15:[address] [facility] 1.2.840.114 350.1.13.10 4.2.7.2.686 [id number] [facility] 2024-03-09 08:47:34 2024-03-09 10:03:[address] [facility] 1.2.840.114 350.1.13.10 4.2.7.2.686 [id number] [facility] 2024-03-08 00:00:00 2024-03-08 00:00:00 Latonia Moore, SET UP PERSON: [address], [place] [address], [place] [address] , Ph. [facility] - GC_GCBZW_La nya Lacy* [id number] [facility] 2024-01-17 09:30:00 2024-01-17 09:30:00 Outpatient JOSE L BARRETTSEY [id number] Abigail Arboleda 2024-01-17 00:00:00 2024-01-17 00:00:00 Outpatient JOSE L BARRETT ABIGAIL ROGERS [id number] Abigail Ambriztayo 2023-10-04 10:30:00 2023-10-04 10:30:00 Outpatient MARITZA SOL ABIGAIL ROGERS [id number] Abigail Arboleda 2023-08-31 09:20:00 2023-08-31 10:17:35 Outpatient R [facility] [id number] [facility] 2023-08-31 09:20:00 2023-08-31 10:17:35 Urgent Care Curt Maynard Unknown, Attending [facility] 1.2.840.114 350.1.13.10 4.2.7.2.686 [id number] [facility] 2023-08-31 00:00:00 2023-08-31 00:00:00 Orders Only Doctor Unassigned, Griswold [facility] 1..840.114 350.1.13.10 4.2.7.2.686 [id number] [facility] 2023-08-13 00:00:00 2023-08-13 00:00:00 Outpatient GC_GCBZW_Ka diyala_S PRIV PRIV [id number] [facility] 2023-08-13 00:00:00 2023-08-13 00:00:00 Outpatient GC_GCBZW_Ka diyala_S PRIV PRIV [id number] [facility] 2023-07-19 00:00:00 2023-07-19 00:00:00 Outpatient GC_GCBZW_Ka diyala_S PRIV PRIV [id number] [facility] 2023-07-09 00:00:00 2023-07-09 00:00:00 Outpatient GC_GCBZW_Ka diyala_S PRIV PRIV [id number] [facility] 2023-06-07 15:40:00 2023-06-07 15:40:00 Outpatient R ANG[facility]A [facility] [id number] [facility] 2023-06-07 00:00:00 2023-06-07 00:00:00 Orders Only Doctor Unassigned, Griswold [facility] 1..114 350.1.13.10 4.2.7.2.686 [id number] [facility] 2023-05-19 00:49:00 2023-05-19 06:44:00 Emergency X PRANAV [facility] [id number] [facility] 2023-05-19 00:49:00 2023-05-19 06:44:00 Emergency Rafat Rock [facility] 1..114 350.1.13.10 4.2.7.2.686 [id number] [facility] 2023-05-19 00:00:00 2023-05-19 00:00:00 Orders Only Doctor Unassigned, Griswold [facility] .114 350.1.13.10 4.2.7.2.686 [id number] [facility] 2021-03-29 00:00:00 2021-03-29 00:00:00 Bear Ruiz [facility] [address] .114 350.1.13.10 4.2.7.2.686 [id number] [facility] 2021-02-16 15:56:46 2021-02-16 16:47:13 Urgent Care Provider, [facility] Iam Maza [facility] .114 350.1.13.10 4.2.7.2.686 [id number] [facility] 2021-02-16 16:00:00 2021-02-16 16:00:00 Outpatient [facility] [id number] [facility] Results Test Description Test Time Test Comments Results Result Co mments Source [id number] 19:14:13* Test Item Value Reference Range Interpretation Comments D-DIMER (test code = 3072112216) 0.45 See_Comment [Automated message] The system which generated this result transmitted reference range: <0.50 ?g/mL (FEU). The reference range was not used to interpret this result as normal/abnormal. DAVID (test code = DAVID) This test may be used in conjunction with a clinical pretest probability (PTP) assessment model to exclude venous thromboembolism (VTE) in patients suspected of deep venous thrombosis (DVT) and pulmonary embolism (PE) A D-Dimer value less than 0.50 ?g/ml (FEU) has a negative predicative value of 96 to 100% (95% CI)and 97 to 100% (95% CI) as an aid in the diagnosis of deep vein thrombosis (DVT) and pulmonary embolism when there is low or moderate pretest probability of PE or DVT. D-Dimer values are expressed in initial fibrinogen equivalent units (FEU)" The assay results should be used with other information, including the clinical context, in forming a diagnosis. Lab Interpretation (test code = 42823-7) Normal [facility]OLIC PANEL ([id number])2025-01-04 19:06:48* Test Item Value Reference Range Interpretation Comme nts NA (test code = 6116298942) 137 mmol/L 135-145 K (test code = 1335227824) 3.7 mmol/L 3.5-5.0 CL (test code = 9184764144) 106 mmol/L 98-108 CO2 TOTAL (test code = 8412983318) 25 mmol/L 23-31 AGAP (test code = 6412043512) 6 2-16 BUN (test code = 7428338978) 8 mg/dL 7-23 GLUCOSE (test code = 0306959772) 90 mg/dL 70-110 CREATININE (test code = 2160-0) 0.68 mg/dL 0.50-1.04 TOTAL BILI (test code = 6062480428) 0.4 mg/dL 0.1-1.1 CALCIUM (test code = 1439493409) 9.0 mg/dL 8.6-10.6 T PROTEIN (test code = 2246004156) 7.4 g/dL 6.3-8.2 ALBUMIN (test code = 8335289850) 4.2 g/dL 3.5-5.0 ALK PHOS (test code = 1222081824) 69 U/L 34-122 ALTv (test code = 1742-6) 8 U/L 5-35 AST(SGOT) (test code = 5012981832) 15 U/L 13-40 eGFR (test code = 17374-8) 128.8 mL/min/1.73m2 CKD-EPI eGFR (20 21). Assuming creatinine has been stable day-to-day for at least three months, the eGFR indicates Category G1 (>= 90 mL/min/1.73 m2) [facility]LIPASE2025-02-13 19:06:28* Test Item Value Reference Range Interpretation Comme nts LIPASE (test code = 6963750737) 166 U/L 0-220 Lab Interpretation (test cod e = 55647-8) Normal [facility] ResourcesCBC WITH [id number] 18:57:28* Test Item Value Reference Range Interpretation Comme nts WBC (test code = 6690-2) 10.08 4.30-11.10 RBC (test code = 789-8) 4.27 3.93-5.25 HGB (test code = 718-7) 11.4 g/dL 11.6-15.0 L HCT (test code = 4544-3) 35.6 % 35.7-45.2 L MCV (test code = 787-2) 83.4 fL 80.6-95.5 MCH (test code = 785-6) 26.7 pg 25.9-32.8 MCHC (test code = 786-4) 32.0 g/dL 31.6-35.1 RDW-SD (test code = 09407-9) 42.0 fL 39.0-49.9 RDW-CV (test code = 788-0) 13.9 % 12.0-15.5 PLT (test code = 777-3) 193 166-358 MPV (test code = 30368-1) 11.5 fL 9.5-12.9 NRBC/100 WBC (test code = 1124042754) 0.0 0.0-10.0 NRBC x10^3 (test code = 2667622752) See_Comment [Automated messa ge] The system which generated this result transmitted reference range: 10*3/?L. The reference range was not used to interpret this result as normal/abnormal. GRAN MAT (NEUT) % (test code = 770-8) 70.4 % IMM GRAN % (test code = 8595180773) 0.30 % LYMPH % (test code = 736-9) 17.8 % MONO % (test code = 5905-5) 7.1 % EOS % (test code = 713-8) 3.8 % BASO % (test code = 706-2) 0.6 % GRAN MAT x10^3(ANC) (test code = 6151137541) 7.10 10*3/uL 1.88-7.09 H IMM GRAN x10^3 (test code = 5572876533) 0.03 10*3/uL 0.00-0.06 LYMPH x10^3 (test code = 731-0) 1.79 10*3/uL 1.32-3.29 MONO x10^3 (test code = 742-7) 0.72 10*3/uL 0.33-0.92 EOS x10^3 (test code = 711-2) 0.38 10*3/uL 0.03-0.39 BASO x10^3 (test code = 704-7) 0.06 10*3/uL 0.01-0.07 Lab Interpretation (test code = 88319-2) Abnormal [facility]PO[facility] [id number] 18:33:00* Test Item Value Reference Range Interpretation Comme nts POCT PREG (test code = 1605) Negative On board controls acceptable with C Line (test code = 3574) Yes POCT PREG LOT # (test code = 3575) [id number] POCT PREG TEST DATE ( test code = 3576) 03/02/2026 Lab Interpretation (test cod e = 05022-3) Normal [facility] ResourcesXR Chest 2 [id number] 18:20:35HISTORY: ?Chest pain. SOB. TECHNIQUE: PA and lateral views of the chest are obtained. FINDINGS: No acute pneumonia detected. No pneumothorax or pleural effusionor pulmonary congestion. Cardiac size is normal. 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 Extensive thoracolumbar spinal fusion surgery noted. Dumbbell shaped nippleornaments are seen on both sides. CONCLUSIONS: No signs of acute cardiopulmonary disease.[facility] ResourcesXR Scoliosis survey 2 [id number] 20:21:19XR SCOLIOSIS SURVEY 2 VW HISTORY: Female 19 years pain COMPARISON: Multiple prior studies, most recently scoliosis radiographdated 08/10/2024 FINDINGS: Postsurgical changes of thoracolumbar fusion spanning C2-L2 areredemonstrated without evidence of hardware complication. Mild S-shaped curvature of the thoracolumbar spine is grossly unchangedfrom the prior study. The thoracolumbar vertebral bodiesare normal in height and in normalalignment. No significant degenerative changes are present. No acuteosseous abnormality. [facility] Resourcespregnancy test, [id number] 11:38:31* Test Item Value Reference Range Interpretation Comme nts HCG (test code = HCG) negative [facility] SCOLIOSIS SURVEY 2 [id number] 19:35:35EXAM: XR SCOLIOSIS SURVEY 2 VW HISTORY: pain COMPARISON: None.[facility] ResourcesXR SCOLIOSIS SURVEY 2 [id number] 21:33:45XR SCOLIOSIS SURVEY 2 VW HISTORY: Female 18 years scoliosis COMPARISON: Scoliosis radiographs dated05/03/2024 FINDINGS: Postsurgical changes of T2-L2 posterior spinal fusion are again notedwithout veronica dence of hardware complication. Minimal dextrocurvature of the thoracic spine is unchanged. The thoracolumbar vertebral bodies are normal in height and in normalalignment. No significant degenerativechanges are present. No acuteosseous abnormality.[facility] ResourcesCbc without Muqe8548-28-27 06:28:20* Test Item Value Reference Range Interpretation Comme nts WBC (test code = 6690-2) 7.03 4.50-13.50 RBC (test code = 789-8) 3.09 4.10-5.10 L HGB (test code = 718-7) 8.2 g/dL 12.0-16.0 L HCT (test code = 4544-3) 24.2 % 36.0-45.0 L MCH (test code = 785-6) 26.5 pg 26.0-32.0 MCV (test code = 787-2) 78.3 fL 78.0-95.0 MCHC (test code = 786-4) 33.9 g/dL 32.0-36.0 PLT (test code = 777-3) 117 135-361 L MPV (test code = 52270-0) 11.6 fL 9.4-13.3 RDW-CV (test code = 788-0) 16.2 % 11.5-14.0 H RDW-SD (test code = 30674-5) 46.3 fL 38.5-49.0 NRBC x10^3 (test code = 2873649657) See_Comment [Automated Olap[employer] ge] The system which generated this result transmitted reference range: 10*3/?L. The reference range was not used to interpret this result as normal/abnormal. NRBC/100 WBC (test code = 3370544616) 0.0 0.0-10.0 IPF % (test code = 2333456436) 5.4 % 0.0-7.4 Platelet count measured by fluorescence method. Lab Interpretation (test code = 97946-8) Abnormal [facility] ResourcesVBG+VCOOX+NA+K+GLU+CA2+2024-05-03 22:26:09* Test Item Value Reference Range Interpretation Comme nts PH (test code = 4015364519) 7.29 7.32-7.42 L PCO2 MIL (test code = 3522321587) 46 41-51 PO2 MIL (test code = 6477835183) 40 25-40 HCO3 MIL (test code = 9156506906) 22 24-28 L AC VBE(BEAKER) (test code = 2239084180) -5.0 mEq/L THB MIL (test code = 3128784269) 10.1 g/dL 12.0-16.0 L %O2HB MIL (test code = 3158165241) 66.5 % 52.0-63.0 H %COHB MIL (test code = 2743687489) 0.1 % 0.0-1.5 %METHB MIL (test code = 4128557028) 0.4 % 0.4-1.5 VOL%O2 MIL (test code = 7882172665) 9.5 % 6.0-12.0 QUES NA (test code = 0347186203) 139 mmol/L 135-145 K+ (test code = 4193494145) 3.5 mmol/L 3.5-5.0 AC CA IONZ (test code = 6421854117) 4.70 mg/dL 4.50-5.30 GLUCOSE (test code = 1436282569) 97 mg/dL 70-110 Lab Interpretation (test cod e = 09059-8) Abnormal [facility] ResourcesVBG+VCOOX+NA+K+GLU+CA2+2024-05-03 22:22:10* Test Item Value Reference Range Interpretation Comme nts PH (test code = 7167509495) 7.29 7.32-7.42 L PCO2 MIL (test code = 3111454578) 50 41-51 PO2 MIL (test code = 2631089802) 35 25-40 HCO3 MIL (test code = 8078505089) 23 24-28 L AC VBE(BEAKER) (test code = 9759865916) -3.3 mEq/L THB MIL (test code = 6196739595) 10.2 g/dL 12.0-16.0 L %O2HB MIL (test code = 9497701912) 59.2 % 52.0-63.0 %COHB MIL (test code = 7680802216) 0.3 % 0.0-1.5 %METHB MIL (test code = 4019653100) 0.5 % 0.4-1.5 VOL%O2 MIL (test code = 4274775029) 8.5 % 6.0-12.0 QUES NA (test code = 9251300806) 140 mmol/L 135-145 K+ (test code = 0130125575) 3.6 mmol/L 3.5-5.0 AC CA IONZ (test code = 3869487615) 4.70 mg/dL 4.50-5.30 GLUCOSE (test code = 5447710019) 92 mg/dL 70-110 Lab Interpretation (test cod e = 97945-9) Abnormal [facility] ResourcesVBG+VCOOX+NA+K+GLU+CA2+2024-05-03 22:20:47* Test Item Value Reference Range Interpretation Comme nts PH (test code = 1016075126) 7.29 7.32-7.42 L PCO2 MIL (test code = 4348305761) 43 41-51 PO2 MIL (test code = 7165826139) 42 25-40 H HCO3 MIL (test code = 7539431294) 21 24-28 L AC VBE(BEAKER) (test code = 4733241767) -5.7 mEq/L THB MIL (test code = 4470054336) 8.7 g/dL 12.0-16.0 L %O2HB MIL (test code = 6156908804) 70.4 % 52.0-63.0 H %COHB MIL (test code = 1892089628) 0.5 % 0.0-1.5 %METHB MIL (test code = 5539168592) 0.8 % 0.4-1.5 VOL%O2 MIL (test code = 1111867975) 8.6 % 6.0-12.0 QUES NA (test code = 6724868565) 141 mmol/L 135-145 K+ (test code = 5190069568) 3.7 mmol/L 3.5-5.0 AC CA IONZ (test code = 9137138229) 4.70 mg/dL 4.50-5.30 GLUCOSE (test code = 6782757347) 105 mg/dL 70-110 Lab Interpretation (test cod e = 67022-9) Abnormal [facility] ResourcesVBG+VCOOX+NA+K+GLU+CA2+2024-05-03 22:13:02* Test Item Value Reference Range Interpretation Comme nts PH (test code = 4231348068) 7.29 7.32-7.42 L PCO2 MIL (test code = 8994783289) 49 41-51 PO2 MIL (test code = 1808162103) 34 25-40 HCO3 MIL (test code = 0398837252) 23 24-28 L AC VBE(BEAKER) (test code = 2872795428) -4.1 mEq/L THB MIL (test code = 5071565701) 9.6 g/dL 12.0-16.0 L %O2HB MIL (test code = 4725950615) 55.2 % 52.0-63.0 %COHB MIL (test code = 8973195361) 0.6 % 0.0-1.5 %METHB MIL (test code = 6372215936) 0.7 % 0.4-1.5 VOL%O2 MIL (test code = 0871626079) 7.5 % 6.0-12.0 QUES NA (test code = 2021010466) 145 mmol/L 135-145 K+ (test code = 8717781700) 4.2 mmol/L 3.5-5.0 AC CA IONZ (test code = 4754064909) 4.90 mg/dL 4.50-5.30 GLUCOSE (test code = 1796419803) 141 mg/dL 70-110 H Lab Interpretation (test cod e = 65148-0) Abnormal [facility]XR Scoliosis Survey 2 VW - POD # 15:11:31XR SCOLIOSIS SURVEY 2 VW CLINICAL INDICATION: 18 year-old Female with post op spinal surgery On POD#2 if patient tolerates ambulation well. COMPARISON: 03/09/2024. FINDINGS:12 rib bearing thoracic type and 5 nonrib- bearing lumbar type vertebralbodies. Immediate postsurgical changes of thoracolumbar posterior spinefusion with bilateral rods and transpedicular screws extending from the T3to L2 levels. The superior aspect of the surgical hardware is poorlyvisualized on the lateral view due to superimposition of osseous structuresand technique. Within limitations, no surgical hardware complication.Improved S-shaped scoliosis of the thoracolumbar spine with minimalresidual scoliotic deformity. Novertebral segmentation anomaly orparaspinal mass. No significant pelvic tilt. Vertebral body heights and intervertebral disc spaces are normal. Osseousmineralization is normal. ? Normal cardiomediastinal silhouette. Clear lungs. Normal bowel gas pattern.[facility] ResourcesPrepare Packed RBC (in units), 1 Iminu4596-17-61 14:43:50 * Test Item Value Reference Range Interpretation Comme nts Cross Match Result (test code = 4409) Compatible ISBT Blood Type Code (test code = 501324) 9500 Unit Blood Type (test code = 4410) O Neg Unit Number (test code = 4411) [id number] Blood Expiration Date & Time (test code = 191430) [id number] Status Information (test code = 4412) Issued Product Identification (test code = 4413) Red Blood Cells Product Code (test code = 4414) [id number] Performed at [facility] Laboratory Services [facility] Blood [address] [address]Hxlt Free: [phone] No. [id number] [facility] TIME OR (NON-REPORTABLE)2024-05-01 21:14:44 These images do not require a Radiology diagnostic report.[facility] TIME OR (NON-REPORTABLE)2024-05-01 21:14:44These images do not require a Radiology diagnostic report.[facility] O-ARM (NON-REPORTABLE)2024-05-01 19:46:46These images do not require a Radiology diagnostic report.[facility] O-ARM (NON-REPORTABLE) 2024-05-01 19:46:46These images do not require a Radiology diagnostic report. [facility] ResourcesIntubation2024-06-10 12:28:00John Gan, DO ? ? 05/01/2024 ?9:40 AMIntubationDate/Time: 05/01/2024 7:28 AMUrgency: elective Airway not difficult General Information and Staff Patient location during procedure: ORPerformed: resident/DELIMER Performed by: John Gan, DOAuthorized by: Jordi Jiménez MD PhD ? Indications and Patient ConditionIndications for airway management: anesthesiaSpontaneous ventilation: presentSedation level: deepPreoxygenated: yesPatient position: sniffingMILS maintained throughoutMask difficulty assessment: 1 - vent by mask Final Airway DetailsFinal airway type: endotracheal airway Successful airway: ETTCuffed: yes Successful intubation technique: direct laryngoscopyFacilitating devices /methods: intubating styletEndotracheal tube insertion site: oralBlade: MacintoshBlade size: #3ETT size (mm): 7.0Cormack-Lehane Classification: grade I - full view of glottisPlacement verified by: chest auscultation and capnometry Measured from: lipsETT to lips (cm): 21Number of attempts at approach: 1Ventilation between attempts: noneNumber of other approaches attempted: 0 Additional CommentsSmooth, atraumatic, dentition and lips unchanged from pre-op. CMAC#3 DL and VL G1v MS3 7.0 ETT x 1 [facility]UnHeart [facility] POCT Ianw6608-56-15 11:18:00* Test Item Value Reference Range Interpretation Comme nts POCT PREG (test code = 1605) Negative On board controls acceptable with C Line (test code = 3574) Yes POCT PREG LOT # (test code = 3575) [id number] POCT PREG TEST DATE ( test code = 3576) 12/29/2024 Lab Interpretation (test cod e = 21989-0) Normal [facility] ResourcesPOCT Bbtx1151-03-87 11:18:00* Test Item Value Reference Range Interpretation Comme nts POCT PREG (test code = 1605) Negative On board controls acceptable with C Line (test code = 3574) Yes POCT PREG LOT # (test code = 3575) [id number] POCT PREG TEST DATE ( test code = 3576) 12/29/2024 Lab Interpretation (test cod e = 41286-5) [facility] [id number] 14:47:04 INDICATIONS:Scoliosis ? TECHNIQUE: Scoliosis survey was performed. Frontal and lateral radiographsof the cervical, thoracic and lumbar spine were obtained. COMPARISON:None. ?[facility]pregnancy test, urine 2024-03-08 10:32:00* Test Item Value Reference Range Interpretation Comme nts HCG (test code = HCG) negative [facility] DDQ7778-05-04 15:16:26* Test Item Value Reference Range Interpretation Comme nts POCT Molecular FluA (test co de = 50910-0) Negative Negative POCT Molecular FluB (test co de = 54957-9) Negative Negative Lab Interpretation (test cod e = 73939-1) Normal [facility] MOLECULAR [id number] 14:58:05* Test Item Value Reference Range Interpretation Comme nts POCT Molecular Strep (test c ode = 05076-1) Negative Negative Lab Interpretation (test cod e = 10625-9) Normal [facility] ResourcesTROPONIN [id number] 11:08:37* Test Item Value Reference Range Interpretation Comme nts TROPONIN I (test code = 7990614145) 0.001 ng/mL <=0.034 DAVID (test code = DAVID) Reference (Normal) Range (defined by the 99th percentile reference limit): <= 0.034 ng/mL Note: Cardiac troponin begins to rise 3-4 hours after the onset of ischemia. Repeat in 4-6 hours if the sample was drawn within 3-4 hours of the onset of the symptom and found normal. Diagnosis of myocardial injury is made with acute changes in cTn concentrations with at least one serial sample above the 99th percentile upper reference limit (URL), taken together with the patient's clinical presentation. Biotin has been reported to cause a negative bias, interpret results relative to patient's use of biotin. Lab Interpretation (test code = 92764-3) Normal [facility] ResourcesACTIVATED PARTIAL THRMPLAS [id number] 10:57:15* Test Item Value Reference Range Interpretation Comme nts APTT Patient (test code = 3173-2) 28 See_Comment [Automated message] The system which generated this result transmitted reference range: 23 - 38 Seconds. The reference range was not used to interpret this result as normal/abnormal. DAVID (test code = DAVID) The [facility] patient population mean normal value for aPTT is 30 seconds. Lab Interpretation (test code = 50707-9) Normal [facility] ResourcesCOMP. METABOLIC PANEL (85661)2023-05-19 10:57:15* Test Item Value Reference Range Interpretation Comme nts NA (test code = 1885494088) 136 mmol/L 135-145 K (test code = 0349979375) 3.9 mmol/L 3.5-5.0 CL (test code = 1182962712) 102 mmol/L 98-108 CO2 TOTAL (test code = 6116166293) 25 mmol/L 23-31 AGAP (test code = 0033450734) 9 2-16 BUN (test code = 5633726139) 9 mg/dL 7-23 GLUCOSE (test code = 8388859552) 87 mg/dL 70-110 CREATININE (test code = 5310877275) 0.74 mg/dL 0.50-1.04 TOTAL BILI (test code = 5185050844) 0.3 mg/dL 0.1-1.1 CALCIUM (test code = 8236119525) 8.9 mg/dL 8.6-10.6 T PROTEIN (test code = 6878928292) 6.4 g/dL 6.3-8.2 ALBUMIN (test code = 7037152782) 3.8 g/dL 3.5-5.0 ALK PHOS (test code = 8729889964) 57 U/L 34-122 ALTv (test code = 1742-6) 11 U/L 5-35 AST(SGOT) (test code = 4571295770) 17 U/L 13-40 DAVID (test code = DAVID) Association of Glomerular Filtration Rate (GFR) and Staging of Kidney Disease* + --+ --+ ------+| GFR (mL/min/1.73 m2) ?| With Kidney Damage ?| ?Without Kidney Damage+ --------+ --------+ +| ?>90 ?| ?Stage one ?| ? Normal ?+ ---+ ---+ -------+| ?60-89 ?| ?Stage two ?| ? Decreased GFR ? + --+ --+ ------+| ?30-59 ?| ?Stage three ?| ? Stage three ? + --+ --+ ------+| ?15-29 ?| ?Stage four ? | ? Stage four ?+ ---+ ---+ -------+| ?<15 (or dialysis) ? ?| ?Stage five ? | ? Stage five ?+ ---+ ---+ -------+ *Each stage assumes the associated GFR level has been in effect for at least three months. ?Stages 1 to 5, with or without kidney disease, indicate chronic kidney disease. Notes: Determination of stages one and two (with eGFR >59mL/min/1.73 m2) requires estimation of kidney damage for at least three months as defined by structural or functional abnormalities of the kidney, manifested by either:Pathological abnormalities or Markers of kidney damage (including abnormalities in the composition of the blood or urine or abnormalities in imaging tests). Lab Interpretation (test code = 59537-4) Normal [facility] WITH [id number] 10:55:34* Test Item Value Reference Range Interpretation Comme nts WBC (test code = 6690-2) 9.99 See_Comment [Automated messa ge] The system which generated this result transmitted reference range: 4.50 - 13.50 10*3/?L. The reference range was not used to interpret this result as normal/abnormal. RBC (test code = 789-8) 4.06 See_Comment L [Automated messa ge] The system which generated this result transmitted reference range: 4.10 - 5.10 10*6/?L. The reference range was not used to interpret this result as normal/abnormal. HGB (test code = 718-7) 10.3 g/dL 12.0-16.0 L HCT (test code = 4544-3) 32.3 % 36.0-45.0 L MCV (test code = 787-2) 79.6 fL 78.0-95.0 MCH (test code = 785-6) 25.4 pg 26.0-32.0 L MCHC (test code = 786-4) 31.9 g/dL 32.0-36.0 L RDW-SD (test code = 93191-0) 38.8 fL 38.5-49.0 RDW-CV (test code = 788-0) 13.4 % 11.5-14.0 PLT (test code = 777-3) 213 See_Comment [Automated messa ge] The system which generated this result transmitted reference range: 135 - 361 10*3/?L. The reference range was not used to interpret this result as normal/abnormal. MPV (test code = 72760-1) 11.2 fL 9.4-13.3 NRBC/100 WBC (test code = 3701130302) 0.0 See_Comment [Automated ID.me ssage] The system which generated this result transmitted reference range: 0.0 - 10.0 /100 WBCs. The reference range was not used to interpret this result as normal/abnormal. NRBC x10^3 (test code = 7782165818) See_Comment [Automated messa ge] The system which generated this result transmitted reference range: 10*3/?L. The reference range was not used to interpret this result as normal/abnormal. GRAN MAT (NEUT) % (test code = 770-8) 49.4 % IMM GRAN % (test code = 7857554716) 0.60 % LYMPH % (test code = 736-9) 37.5 % MONO % (test code = 5905-5) 7.0 % EOS % (test code = 713-8) 4.9 % BASO % (test code = 706-2) 0.6 % GRAN MAT x10^3(ANC) (test code = 4935764093) 4.93 10*3/uL 1.50-10.30 IMM GRAN x10^3 (test code = 4207721995) 0.06 10*3/uL 0.00-0.06 LYMPH x10^3 (test code = 731-0) 3.75 10*3/uL 0.70-7.40 MONO x10^3 (test code = 742-7) 0.70 10*3/uL 0.00-0.50 H EOS x10^3 (test code = 711-2) 0.49 10*3/uL 0.00-0.40 H BASO x10^3 (test code = 704-7) 0.06 10*3/uL 0.00-0.10 Lab Interpretation (test code = 52760-3) Abnormal [facility] ResourcesPROTHROMBIN TIME / [id number] 10:55:14* Test Item Value Reference Range Interpretation Comme [facility] PROTIME PATIENT (test code = 5964-2) 14.0 See_Comment [Automated [employer]] The system which generated this result transmitted reference range: 12.0 - 14.7 Seconds. The reference range was not used to interpret this result as normal/abnormal. INR (test code = 6301-6) 1.1 Normal INR <1.1; Warfarin Therapeutic range 2.0 to 3.0 or 2.5 to 3.5, depending upon the indications. Lab Interpretation (test code = 98181-4) Normal [facility]PO[facility] [id number] 10:44:00* Test Item Value Reference Range Interpretation Comme [facility] POCT PREG (test code = 1605) Negative On board controls acceptable with C Line (test code = 3574) Yes POCT PREG LOT # (test code = 9826) [id number] POCT PREG TEST DATE ( test code = 3576) 2024-08-27 Lab Interpretation (test cod e = 25411-1) Normal [facility]PO[facility] GRP A STREP (MOLECULAR)2021-02-16 21:29:00* Test Item Value Reference Range Interpretation Comme nts POCT GP A STREP (test code = 54403-0) negative Negative - Negative Lab Interpretation (test cod e = 03815-5) Normal [facility] Consult Notes Date/Time Note Provider Source 2024-05-02 11:15:00 Associated Order(s): CONSULT PEDI PHYSICAL THERAPY Patient agreeable to working with physical therapy. Patient met semi reclined in bed. Patient is seen in conjunction with Occupational Therapy due to medical complexity and limited tolerance; billing for PT portion only. Recommend nursing staff utilize rolling walker to safely assist patient with mobility out of the bed or chair. PHYSICAL THERAPY EVALUATION Consult received, chart reviewed and evaluation complete this date. Patient is referred to PT for evaluation and treatment. Patient is a 18 year old female who presents to hospital for Adolescent idiopathic scoliosis of thoracolumbar region s/p posterior scoliosis correction on 05/01/24. Discharge Recommendations: Therapy Needs and Potential: Patient would benefit from continued physical therapy services to address: decline in bed mobility decline in transfers decline in gait and/or balance decline in stair/step negotiation decreased strength decreased endurance Patient demonstrates good potential to improve and meet therapy goals with further physical therapy services. Patient appears motivated to improve their functional mobility and return to their previous level of function. Patient demonstrates ability to tolerate atleast 30-60 minutes of physical therapy with active participation. Challenges to Home Transition: increased risk of falls environmental barriers Equipment recommendations: rolling walker Current Functional Status and/or Treatment: AM-PAC 6 Clicks (Raw Score 0=Dependent, 24=Independent; Low function Raw Score 0= Dependent, 32=Independent): Raw Score - Basic Mobility : 18 T-Scale Score - Basic Mobility : 41.05 Bed Mobility: Rolling: Supervision Supine to sit: Minimal Assistance Sitting Balance: Good Scooting to EOB: Supervision Cued logroll to decrease strain on spine during transition Dizziness Yes; resolved within 1-2 minutes sitting at EOB Baseline BP 99/55 - RN notified Transfers: Sit to stand: Supervision using rolling Walker. Stand to sit: Supervision using rolling Walker. Static/dynamic standing balance: Fair+ Verbal cueing provided for correct hand placement and correct use of AD Dizziness No Ambulation: Assisted patient with ambulation as follows: 15ft, 100ft, 150 feet using rolling Walker. and Supervision. Patient presenting with Modified 3 point gait pattern. Incorporated seated rest breaks to resolve dizziness Dizziness Yes Post BP 89/44 - RN notified Therapeutic exercise: patient educated in Edema management, Energy conservation, Fall prevention, General strengthening, Positioning, and Spinal precautions. and patient/caregiver verbalizes understanding of instructions. Patient is educated on importance of out of bed activity and upright sitting, especially for meals, to decrease risk of pneumonia, pressure sores, and deconditioning. Educated patient on energy conservation; instructed to perform small bouts of activity spread throughout the day, allowing time for rest between activities, to build endurance and prevent fatigue. Educated patient on importance of elevating B leg and performing ankle pumps to decrease edema and risk of blood clot formation. Functional Outcome Measures: (Values within the past 12 hours) Tinetti Gait Score- # / 12 Initiation of gait: No hesitancy Step length: On both sides, swing foot passes stance foot Foot clearance: Both feet completely clear floor Step Symmetry: Step lengths equal Step continuity: Steps appear continuous Path: Mild/moderate deviation or uses AD Trunk: Marked sway or uses AD Walking: Heels almost touching Tinetti Gait Score: 9 Tinetti Gait Score Interpretation: >= 7 - Low risk for falls TINETTI BALANCE SCORE- # / 16 Sitting balance: Steady, safe Arises: Able, uses arms to help Attempts to Rise: Able to rise, 1 attempt Immediate standing balance (first 5 sec): Steady but uses walker or other support Standing Balance: Steady but SOLE > 4 inches or uses AD/other support Nudged 3 times *: Staggers, grabs, catches self Eyes closed*: Steady Turning 360 degrees: Either discontinuous or unsteady Sitting down: Uses arms or motion not smooth Tinetti Balance Score: 10 Tinetti Balance Interpretation: >= 9 - Low risk for falls After session, patient up in chair. Call button provided. PLAN OF CARE: While in the hospital, PT will follow patient at least 3 times per week,once or twice a day, per patient's tolerance and needs. See below for complete details. Admit Date: 05/01/2024 Hospital Diagnosis:Adolescent idiopathic scoliosis of thoracolumbar region [M41.125] PT Diagnosis: Difficulty walking Weight Bearing Precaution: NA General Precautions: PPE used:Gloves, General, Fall, Spinal precautions,Franco catheter, IV disconnected Bracing/Cast present or required:N/A PMH: No past medical history on file. PSH: Past Surgical History: Procedure Laterality Date POSTERIOR SCOLIOSIS CORRECTION Bilateral 05/01/2024 Surgeon: Arturo Jackson MD; Location: [facility] Prior Living Situation: Lives in a 2-story home with mother, father, and grandmother, Stairs with right side rail Able to negotiate: Yes DME: Shower chair Prior level of Mobility: community ambulation, house hold ambulation Suspected ischemic or hemorraghic stroke:No Subjective: Patient reports that she feels good and wants to walk more Patient/Family Goals: return to PLOF Patient/Family verbalizes understanding of condition: Yes PAIN: -Pain Description: aching -Pain Location: upper back -Pain rating before treatment: 5, After treatment: does not rate, decreased -Pain Management: Pain Meds given and Repositioning Provided COMMUNICATION Primary Language: [place] Able to Verbalize needs: Yes Vision:reading glasses Hearing:good; no issues reported ORIENTATION/COGNITION: Oriented to: person, place, date/time, and situation Awake: Yes Alert: Yes Dizzy: Yes upon sitting, resolved Follows Commands: Yes 1-Step Yes Multi-Step Yes Inconsistent: No NEUROLOGICAL Light Touch: within functional limits bilateral LE Tone: normal BALANCE: Sitting: Static: Good Dynamic: Good Standing: Static: Good Dynamic: Fair+ RANGE OF MOTION: within functional limits bilateral LE STRENGTH: 5/5 (Normal), bilateral LE ENDURANCE: Fair+, Room air SKIN INTEGRITY: surgical dressings intact PROBLEM LIST: Decline in bed mobility, Decline in gait, Decline in transfers, Difficulty with stairs, Decreased strength, Decreased endurance, Decreased balance, and Pain ASSESSMENT: Patient is a 18 year old female seen secondary to the above listed diagnosis. Patient would benefit from continued PT to address the above listed deficits to maximize independence and safety with functional mobility. Rehabilitation Potential: good Goals: The following goals are to maximize independence and safety with functional mobility to eventually return to prior living situation and prior functional status. Upon discharge, patient and/or family will demonstrate the followin. Supine-sit: Independent 2. sit-stand: Independent 3. Independent with ambulation, Feet: 250 using least assistive device. 4. Independent up/down 14 stairs using right side rail. Treatment Plan: Gait training, Gait training on stairs, Therapeutic exercise, Transfer training, Balance training, Bed mobility training, Equipment needs assessment, Safety education, patient/caregiver education, Pain management, Neuromuscular Re-Education, and Functional Motor Training PATIENT EDUCATION: Patient provided with preferred teaching of verbal information on role of PT, plan of care, and above instruction. Shows readiness to learn. Verbal instruction teaching provided. Individual is able to read and verbalizes understanding of teaching provided. Sharifa Lubin, PT, DPT Total Timed Tx Codes in Minutes: 24 Min Total Treatment Time in Minutes: 41 Min A physical therapy evaluation of moderate complexity was completed based on meeting the criteria below: A history of present problem with at least 1-2 personal factors (includes environmental factors) and/or comorbidities that impact the plan of care An examination of body systems using standardized tests and measures in addressing at least 3 or more elements from any of the following: body structures and functions, activity limitations and/or participation restrictions An evolving clinical presentation with changing characteristics [facility] 2024-05-02 11:15:00 Associated Order(s): CONSULT PEDI OCCUPATIONAL THERAPY OT GENERAL EVALUATION Consult received via [employer], EMR reviewed and evaluation completed 05/02/24. Patient referred to occupational therapy for evaluation and treatment s/p POSTERIOR SCOLIOSIS CORRECTION. Patient agreeable to participate in occupational therapy. Pt seen in conjunction with PT secondary to limited activity tolerance due to low BP. Only billing for OT services. Discharge Recommendations: Therapy Needs and Potential:Not applicable as no further skilled acute care OT needs at this time. Challenges to Home Transition:- Requires physical assistance for IADLS - Requires supervision or verbal cues for BADLS - Requires supervision or verbal cues for IADLS - Increased risk of falls - Environmental barriers -MS house with bed/bath upstairs Equipment Recommendations: None PLAN OF CARE: Discharge from OT services Precautions: Weight bearing status: NA General: PPE Utilized: Gloves, Fall, spinal, and franco Bracing: N/A Current Occupational Performance and/or Treatment: AM-PAC 6 Clicks (Raw Score 0=Dependent, 24=Independent; Low function Raw Score 0= Dependent, 32=Independent): Raw Score - Daily Activity: 21 T-Scale Score - Daily Activity: 44.27 Feeding: Independent, pt reported eating pancakes this morning without assistance. Grooming: Supervision, pt washed her hands and brushed her teeth while standing at sink. Pt became dizzy while completing tasks and required a sitting rest break before moving on to next activity. Bathing: NT, educated pt on use of shower chair to prevent falls in the shower. UB Dressing: Independent, pt donned robe across back while sitting EOB. LB Dressing: Independent, pt used lho-ip-dywca flexion to simulate donning/doffing socks. PT educated on avoiding bending down to feet to maintain spinal precautions. Toilet Transfer: Supervision, pt descended/ascended with sedrick to use grab bar vs rolling walker for better stability. Toileting Hygiene: franco Functional Mobility: Defer to PT evaluation. Patient/caregiver educated on: Adaptive equipment , ADL training, Deep breathing, Fall prevention (handout issued/reviewed), Positioning (logroll to get out of bed), Role of OT, and Spinal precautions (pt verbalized understanding by teaching back). Patient left reclining in bedside chair with call wilcox in reach. Mother present. Please, see full evaluation below for more detail. OT EVALUATION: 18 year old female Admit date: 05/01/2024 Date of onset: 05/01/2024 Admit Diagnosis: Adolescent idiopathic scoliosis of thoracolumbar region [M41.125] OT Diagnosis: Impaired BADL independence, Impaired IADL independence, Weakness, Decreased endurance, and Limited joint ROM PMH: No past medical history on file. PSH: Past Surgical History: Procedure Laterality Date POSTERIOR SCOLIOSIS CORRECTION Bilateral 05/01/2024 Surgeon: Arturo Jackson MD; Location: [facility] PAIN: Pain Location: lower back and upper back Pain rating before treatment: 4, After treatment: does not rate Pain Management: Reports taking pain meds, Decreased movement aides in some pain reduction, and Repositioning Provided OCCUPATIONAL ROLES/HOME ENVIRONMENT: Home environment: Lives with parents and and grandmother, 14/06 supervision/assistance is available, Multistory home, and Stairs . 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 [employer] General Function prior to admission: Household ambulation, Community ambulation, Independent with BADLs, and Independent with IADLs Suspected ischemic or hemorraghic stroke patient: No Equipment prior to admission: Shower chair PERFORMANCE SKILLS/FACTORS: UE Muscle Tone: bilateral WNL UE ROM: bilateral AROM WFL UE Strength: AZEEM UE 4/5 Hand dominance: right Dexterity/Coordination: bilateral Intact Endurance - Sitting: Good Standing: Fair+ Sitting Balance - Static: Good Dynamic: Good Standing: Balance - Static Good Dynamic: Fair+ Dizziness: Yes Skin Integrity: dressings intact Sensation: Patient denies numbness and tingling. Oral Motor: WFL Communication: Able to verbalize needs Yes Other: N/A Vision: WFL Yes Other: reading glasses Hearing: good; no issues reported COGNITION: Orientation: NT; no concerns at this time Follows Commands: 1-step Yes Multi-step Yes Inconsistencies No Safety Awareness/Judgment: Good PROBLEM LIST: Decreased independence with ADL, Decreased functional ROM, and Decreased strength/endurance for functional activity REHAB POTENTIAL/PROGNOSIS: good PATIENT/FAMILY GOALS: none stated TREATMENT/INTERVENTION PLAN: Discharge from OT PATIENT-FAMILY TEACHING Patient and Family member provided with preferred teaching of verbal information, written information, and demonstration on Adaptive equipment , ADL training, Deep breathing, Fall prevention (handout issued/reviewed), Positioning (logroll to get out of bed), Role of OT, and Spinal precautions (pt verbalized understanding by teaching back). Shows readiness to learn. Verbal instruction, Written material, and Demonstration teaching provided. Individual is able to read and verbalizes understanding of teaching provided. FLOR Antunez, MOT Total Timed Treatment Codes: 8 Min Total Treatment Time: 39 Min Patient Complexity Level Moderate - An occupational therapy evaluation of moderate complexity was completed using the above tests and measures. The following information was obtained: An occupational profile and medical and therapy history, including an expanded review of medical and/or therapy records and additional review of physical, cognitive, or psychosocial history related to current functional performance, Various standardized and non-standardized assessments were used to identify at least 3-5 performance deficits related to physical, cognitive, or psychosocial skills that result in activity limitations and/or participation restrictions, and Clinical decision making of moderate analytic complexity, which includes an analysis of the occupational profile, analysis of data from detailed assessment(s), and consideration of several treatment options. Patient may present with comorbidities that affect occupational performance. Minimal to moderate modification of tasks or assistance (e.g., physical or verbal) with assessment(s) is necessary to enable patient to complete evaluation component. Shashank Slaughter OT [facility] History and Physical Notes Date/Time Note Provider Source 2024-05-01 06:39:49 Orthopedic Spine Surgery H&P Note Attestation I have verified and agree with the contents of the H&P note by my resident for documentation and findings, including physical exam and medical decision making. Please see the resident's note for additional details. Electronically Signed by: Arturo Jackson MD Filter Operator Adult and Pediatric Orthopedic Spine Surgery [facility] ([facility]) Notice: Parts of this note were created using [employer] speech recognition dictation software. All attempts were made to correct any errors at the time of dictation. However, there may be some errors present in the corporate director that were inadvertently overlooked during the dictation. [facility] 2024-05-01 06:34:34 Orthopedic Surgery Pre Operative History and Physical Note Date of Service: 05/01/2024 Libia Jones is a 18 year old female who was interviewed and examined today in the DSU/holding area/operating room before induction of anesthesia. There have been no significant interval changes in the history or physical exam. See full H&P, copied below for completeness, for more details. Risks, benefits and alternatives to the procedure were reviewed with the patient again today, and she voiced understanding of the condition present as well as the planned procedure(s) without questions and wishes to proceed. Informed consent was obtained. Planned procedure: PSIF T2-L2 with Davian osteotomies at T7-T10. Modesto Milan MD Orthopedic Surgery Resident Orthopedic Spine Surgery Clinic Note Provider: Dr. Jackson Patient: Libia Jones : 2005 Primary Care Provider: Adeel Manning [address] [place] [address] / [facility] [id number] History: The patient is a 18 year old /White female with Chief Complaint of scoliosis. I personally reviewed the clinic form completed by the patient today and checked its accuracy during the visit. The form is uploaded on [employer] and is available upon request. It consists of pain diagram, comprehensive details of history of present illness and updated past medical history, surgical history, medication history, allergies, family history, social history and a complete review of systems. Briefly, the patient presents with known scoliosis since 7th grade. No bracing since then. Is starting to have mid/low back and hip pain which has prompted her referral to us. Her hip pain is described as a pinching pain more on the R side. No radiating pain to the feet. No bowel or bladder incontinence. Does not do sports. Currently a senior in high school Of note: Mom has scoliosis, Hx of bilateral knee scopes in the past. No Known Allergies No past medical history on file. No past surgical history on file. Social History Tobacco Use Smoking status: Never Smokeless tobacco: Never Substance Use Topics Alcohol use: Never , . No family history on file. Current Outpatient Medications Medication Instructions famotidine (PEPCID AC) 20 mg, Oral, BID fluticasone propionate 50 mcg/actuation nasal spray 1 spray each nostril twice a day for 5 days then daily Review of system is remarkable for none. Physical Examination: body mass index is 18.27 kg/m?. Vital signs: Vitals: 05/01/24 0553 BP: 121/69 Pulse: 81 Resp: 17 Temp: 36.6 ?C (97.8 ?F) TempSrc: Tympanic SpO2: 100% Weight: 54.5 kg (120 lb 2.4 oz) Height: 1.727 m (5' 8") General Appearance: The patient is well groomed without any apparent distress Orientation: The patient is oriented to time, person and place Mood and Affect: The patient has normal mood with appropriate affect. Gait, Station and Balance: The patient has normal erect posture, bipedal unassisted gait, toe walking and heel walking and maintains normal balance on tandem gait of more than 6 steps. Skin, Inspection and Palpation: The patient has average body habitus. No surgical scars or midline cutaneous lesions indicative of spinal pathology are observed. There is no gross malalignment of the spine.There is no tenderness on palpation of cervical, thoracic, lumbar, and lumbosacral spine. Active Range of Motion in lumbar spine is fully preserved and free of pain for flexion/extension and rotation. Shoulders are symmetrical. Right sided hump. For hips, range of motion is fully maintained without any pain or crepitation bilaterally. Stability is maintained in the spine and extremities. Muscle Strength for the lower extremities was at 5/5 symmetrically. Sensation in the upper and lower extremities was preserved for light touch and proprioception bilaterally. Tendon Reflexes for Quadriceps and Achilles tendons were normal and symmetric.. Coordination for finger to nose and rapid alternating movement of the hands was normal on both sides. Cardiovascular and Lymphatics: Pulses for radial and posterior tibial arteries were regular and symmetric. No palpable lymphadenopathy existed in the axillary areas. There is no edema in the upper or lower extremities. Imaging & Lab Studies: Xray 03/09/2024 full spine personally interpreted by myself and faculty: The XR shows scoliosis survey demonstrate R sided thoracic scoliosis from T2-L1 measuring 52 degress, no evidence of instability or acute fracture. SI joints appear unremarkable. Spinous processes are midline. The disc heights are maintained. Assessment: Libia Jones is a 18 year old /White female with R sided thoracic scoliosis from T2-L1 Plan: Libia was seen today for new patient. Diagnoses and all orders for this visit: Adolescent idiopathic scoliosis of thoracolumbar region Scoliosis, unspecified scoliosis type, unspecified spinal region - XR SCOLIOSIS SURVEY 2 VW; Future Discussed exam and imaging findings with patient. All questions answered to patient's satisfaction. Educated and advised patient on condition present. Advised patient to contact us with questions/concerns. Patient voiced understanding and agreement of plan. Discussed continued non-operative vs operative intervention She is a candidate for T2-L1 PSIF Discussed risks and benefits of surgery Patient would like to proceed with surgery Preop labs ordered Scoliosis bending films ordered Will get patient scheduled for surgery ( After April 13, preferably) and will follow up after surgery Yash Rodarte M.D. Orthopaedic Surgery PGY-4 Associated attestation - Arturo Jackson MD - 05/01/2024 5:28 PM CDT Orthopedic Spine Surgery H&P Note Attestation Patient: Libia Jones : 2005 I have verified and agree with the contents of the H&P note by our PGY3 resident, Dr. Modesto Milan,, for documentation and findings, including physical exam and medical decision making. Please see the note for additional details. Electronically Signed by: Arturo Jackson MD Filter Operator Adult and Pediatric Orthopedic Spine Surgery [facility] ([facility]) 05/01/2024 5:28 PM Notice: Parts of this note were created using [employer] speech recognition dictation software. All attempts were made to correct any errors at the time of dictation. However, there may be some errors present in the corporate director that were inadvertently overlooked during the dictation. [facility] - [facility] Procedure Notes Date/Time Note Provider Source 2024-05-01 07:41:31 Associated Order(s): Intubation Intubation Date/Time: 05/01/2024 7:28 AM Urgency: elective Airway not difficult General Information and Staff Patient location during procedure: OR Performed: resident/DELIMER Performed by: John Gan DO Authorized by: Jordi Jiménez MD PhD Indications and Patient Condition Indications for airway management: anesthesia Spontaneous ventilation: present Sedation level: deep Preoxygenated: yes Patient position: sniffing MILS maintained throughout Mask difficulty assessment: 1 - vent by mask Final Airway Details Final airway type: endotracheal airway Successful airway: ETT Cuffed: yes Successful intubation technique: direct laryngoscopy Facilitating devices/methods: intubating stylet Endotracheal tube insertion site: oral Blade: Miki Blade size: #3 ETT size (mm): 7.0 Cormack-Lehane Classification: grade I - full view of glottis Placement verified by: chest auscultation and capnometry Measured from: lips ETT to lips (cm): 21 Number of attempts at approach: 1 Ventilation between attempts: none Number of other approaches attempted: 0 Additional Comments Smooth, atraumatic, dentition and lips unchanged from pre-op. CMAC#3 DL and VL G1v MS3 7.0 ETT x 1 attempt AN-ANESTHESIOLOGY [facility] Notes Date/Time Note Provider Source 2025-01-09 16:00:00 Addended by: ARTURO JACKSON MD on: 01/13/2025 05:22 PM Modules accepted: Level of Service [facility] 2025-01-04 13:50:35 Pt discharged with diagnosis of CP. Printed and verbal instructions reviewed with and given to pt. Prescriptions given x 0. Pt verbalized understanding of teaching and recommended follow-up. Denies questions or concerns at this time. Pt ambulatory at discharge. Appears in no apparent distress. No ataxia noted. Accompanied by mother. [facility] Nettie Toney RN [facility] 2025-01-04 11:56:56 Patient arrived ambulatory with visitor c/o chest pain that started yesterday and has gotten worse through out the day. Complaining of chest pain in the center of her chest and the left side of her chest. LLER OPERATOR Krystal Laureano RN [facility] 2024-12-15 09:17:17 Chief Complaint Patient presents with Rash Rash on right ankle that is spreading to left ankle for 2 weeks. She states that it itches. Letty Jackson MA [facility] 2024-11-09 11:30:00 Addended by: ARTURO JACKSON MD on: 11/12/2024 09:04 AM Modules accepted: Level of Service [facility] 2024-05-22 17:07:34 Follow up call placed to patient, mom states that she has spoken to Dr. Jackson and patient will come to appointment on 06/08/24. T Azalia Bueno LVN [facility] 2024-05-19 15:32:57 Message routed to physician. [facility] 2024-05-16 15:16:20 Follow up call received from patient/ mom regarding patient report of constant headaches. States that patient continues to have headaches since procedure on 05/01/24, but headaches have gotten worse over last two days. Per patient, headache has been radiating from top of head to behind left eye and left ear. Per mom, patient has not been able to sleep well due to the frequency of headaches. Also states that ADLs are occasionally affected by headaches. Verbalize current headache @ 4/10. Patient denies any nausea/ vomiting or dizziness, or ringing in ear. Patient/ mom advised to go to ER if symptoms present or worsen. Message routed to physician. [facility] 2024-05-16 15:01:13 Incoming Call Provider: Arturo Jackson MD Date of Surgery (if applicable):05/01/2024 Surgical Procedure (if applicable): Posterior Scoliosis Correction - Bilateral Last Office Visit Date: 05/16/2024 Follow up Date: 06/08/24 Documentation MOP calling back f/u on dr responds on headache concern Preferred Pharmacy: [facility]/pharmacy #[id number] [place], [place] - [address] [facility] Insurance: Payor: [facility] / Plan: [facility] - OUT OF STATE / Product Type: PPO/POS / Recent/Future Schedule Appointments at the time of this encounter Recent Visits Date Type Provider Dept 05/11/24 Office Visit Kaylin Hayes DNP [facility] 03/09/24 Office Visit Arturo Jackson MD [facility] Showing recent visits within past 365 days and meeting all other requirements Future Appointments Date Type Provider Dept 06/08/24 Appointment Kaylin Hayes DNP [facility] Showing future appointments within next 365 days and meeting all other requirements Naya Jaimes [facility] 2024-05-16 09:22:17 Mom of patient called and spoke to me. Mom stated that patient has been having migraine headaches x 2 days, otherwise doing well. Wanted to know if it was a result of her surgery on 05/01/24. Sent Dr Jackson a secured chat message Ivette Coronel MA [facility] 2024-05-08 16:00:42 2nd call left message on recorder to return call. Montse Danielle LVN [facility] 2024-05-05 14:15:09 TRANSITIONAL CARE MANAGEMENT ASSESSMENT 05/05/2024 Libia Jones [id number] Libia Jones is a 18 year old /White female was admitted on 05/01/[address] She was discharged on 05/04/24 with discharge disposition of HR- Routine Discharge. Admitting Physician: Arturo Jackson Discharge Diagnosis: Adolescent idiopathic scoliosis of thoracolumbar region [M41.125]Left message on recorder to return call. DME Other DME location [employer] [facility] No linked episodes TCM [id number] outreach documentation: Future Appointments: Future Appointments Provider Department Dept Phone 05/11/2024 3:40 PM Kaylin Hayes DNP [facility] [phone] [facility] 2024-05-04 09:34:59 Problem: Pain Goal: Control of pain at or below patient's documented comfort goal Outcome: Adequate for discharge Goal: Reduction in pain sensation Outcome: Adequate for discharge Problem: Infection Risk Goal: Absence of infection Outcome: Adequate for discharge Problem: Discharge Planning Goal: Adequate for discharge Outcome: Adequate for discharge Goal: Effective communication Outcome: Adequate for discharge Problem: Skin integrity Impaired (Risk or Actual) Goal: Wound healing Outcome: Adequate for discharge Goal: Prevention of new skin breakdown Outcome: Adequate for discharge Problem: Falls, Risk of Goal: Absence of falls Outcome: Adequate for discharge Problem: Mobility - Impaired Goal: Able to achieve maximum mobility level Outcome: Adequate for discharge Problem: Respiratory Function - Impaired Goal: Able to cough effectively Outcome: Adequate for discharge Goal: Adequate oxygenation Outcome: Adequate for discharge Goal: Adequate work of breathing Outcome: Adequate for discharge Goal: Patent airway Outcome: Adequate for discharge Amanda Brower RN [facility] 2024-05-04 03:21:08 Problem: Pain Goal: Control of pain at or below patient's documented comfort goal Outcome: Progressing as expected Goal: Reduction in pain sensation Outcome: Progressing as expected Problem: Infection Risk Goal: Absence of infection Outcome: Progressing as expected Problem: Discharge Planning Goal: Adequate for discharge Outcome: Progressing as expected Goal: Effective communication Outcome: Progressing as expected Problem: Skin integrity Impaired (Risk or Actual) Goal: Wound healing Outcome: Progressing as expected Goal: Prevention of new skin breakdown Outcome: Progressing as expected Problem: Falls, Risk of Goal: Absence of falls Outcome: Progressing as expected Problem: Mobility - Impaired Goal: Able to achieve maximum mobility level Outcome: Progressing as expected Problem: Respiratory Function - Impaired Goal: Able to cough effectively Outcome: Progressing as expected Goal: Adequate oxygenation Outcome: Progressing as expected Goal: Adequate work of breathing Outcome: Progressing as expected Goal: Patent airway Outcome: Progressing as expected Marii Daniels RN [facility] 2024-05-03 22:24:39 A patient w/ normal wob. Dexter VENEGAS [facility] 2024-05-03 08:20:18 Problem: Pain Goal: Control of pain at or below patient's documented comfort goal Outcome: Progressing as expected Goal: Reduction in pain sensation Outcome: Progressing as expected Problem: Infection Risk Goal: Absence of infection Outcome: Progressing as expected Problem: Discharge Planning Goal: Adequate for discharge Outcome: Progressing as expected Goal: Effective communication Outcome: Progressing as expected Problem: Skin integrity Impaired (Risk or Actual) Goal: Wound healing Outcome: Progressing as expected Goal: Prevention of new skin breakdown Outcome: Progressing as expected Problem: Falls, Risk of Goal: Absence of falls Outcome: Progressing as expected Problem: Mobility - Impaired Goal: Able to achieve maximum mobility level Outcome: Progressing as expected Problem: Respiratory Function - Impaired Goal: Able to cough effectively Outcome: Progressing as expected Goal: Adequate oxygenation Outcome: Progressing as expected Goal: Adequate work of breathing Outcome: Progressing as expected Goal: Patent airway Outcome: Progressing as expected T Latonia Andrew RN [facility] 2024-05-03 05:22:11 A patient w/ normal wob. T [facility] 2024-05-03 00:26:38 Problem: Pain Goal: Control of pain at or below patient's documented comfort goal Outcome: Progressing as expected Goal: Reduction in pain sensation Outcome: Progressing as expected Problem: Infection Risk Goal: Absence of infection Outcome: Progressing as expected Problem: Discharge Planning Goal: Adequate for discharge Outcome: Progressing as expected Goal: Effective communication Outcome: Progressing as expected Problem: Skin integrity Impaired (Risk or Actual) Goal: Wound healing Outcome: Progressing as expected Goal: Prevention of new skin breakdown Outcome: Progressing as expected Problem: Falls, Risk of Goal: Absence of falls Outcome: Progressing as expected Problem: Mobility - Impaired Goal: Able to achieve maximum mobility level Outcome: Progressing as expected [facility] 2024-05-02 09:10:21 Problem: Pain Goal: Control of pain at or below patient's documented comfort goal Outcome: Progressing as expected Goal: Reduction in pain sensation Outcome: Progressing as expected Problem: Infection Risk Goal: Absence of infection Outcome: Progressing as expected Problem: Discharge Planning Goal: Adequate for discharge Outcome: Progressing as expected Goal: Effective communication Outcome: Progressing as expected Problem: Skin integrity Impaired (Risk or Actual) Goal: Wound healing Outcome: Progressing as expected Goal: Prevention of new skin breakdown Outcome: Progressing as expected Problem: Falls, Risk of Goal: Absence of falls Outcome: Progressing as expected Problem: Mobility - Impaired Goal: Able to achieve maximum mobility level Outcome: Progressing as expected [facility] 2024-05-02 03:21:30 Problem: Pain Goal: Control of pain at or below patient's documented comfort goal Outcome: Progressing as expected Goal: Reduction in pain sensation Outcome: Progressing as expected Problem: Infection Risk Goal: Absence of infection Outcome: Progressing as expected Problem: Discharge Planning Goal: Adequate for discharge Outcome: Progressing as expected Goal: Effective communication Outcome: Progressing as expected Problem: Skin integrity Impaired (Risk or Actual) Goal: Wound healing Outcome: Progressing as expected Goal: Prevention of new skin breakdown Outcome: Progressing as expected Problem: Falls, Risk of Goal: Absence of falls Outcome: Progressing as expected Problem: Mobility - Impaired Goal: Able to achieve maximum mobility level Outcome: Progressing as expected [facility] 2024-05-01 18:01:23 Patient: Libia Jones Procedure Summary Date: 05/01/24 Room / Location: [address] Anesthesia Start: 717 Anesthesia Stop: 1729 Procedure: POSTERIOR SCOLIOSIS CORRECTION (Bilateral: Back) Diagnosis: Adolescent idiopathic scoliosis of thoracolumbar region (Adolescent idiopathic scoliosis of thoracolumbar region [M41.125]) Surgeons: Arturo Jackson MD Responsible Provider: Jordi Jiménez MD PhD Anesthesia Type: TIVA ASA Status: 2 Anesthesia Type: TIVA Last vitals BP Temp Pulse Resp SpO2 There were no known notable events for this encounter. Anesthesia Post Evaluation Patient location during evaluation: bedside Patient participation: complete - patient participated Level of consciousness: awake and alert Pain score: 0 Pain management: satisfactory to patient Airway patency: patent Cardiovascular status: acceptable and blood pressure returned to baseline Respiratory status: acceptable Hydration status: acceptable AN-ANESTHESIOLOGY ANESTHESIOLOGIST [facility] 2024-05-01 16:06:00 Patients mother given update Amy Caba RN [facility] 2024-05-01 14:00:00 Patients mother given update [facility] 2024-05-01 13:34:00 Patients mother given update [facility] 2024-05-01 11:24:00 Patients mother given update [facility] 2024-05-01 10:41:00 Patients mother given update [facility] 2024-05-01 08:45:00 Patients mother notified of surgery starting [facility] 2024-05-01 08:40:17 Orthopedic Spine Surgery Operative Note Attending Provider: Arturo Jackson MD Patient: Libia Jones : 2005 05/01/2024 PRE-OP DIAGNOSIS: - Adolescent Idiopathic Scoliosis (M41. 125) - Lenke Type 2 POST-OP DIAGNOSIS: Same PROCEDURE(S): Posterior Spinal Instrumentation Fusion (T2-L2), Davian Osteotomy (T7-T8 and T8-T9) CPT Code 10425: Arthrodesis, posterior, for spinal deformity, with or without cast; 13 or more vertebral segments (T2-L2) CPT Code 33451: Posterior segmental instrumentation (e.g., pedicle fixation, dual rods with multiple hooks and sublaminar wires); 13 or more vertebral segments (T2-L2) CPT Code 29157: Osteotomy of spine, posterior or posterolateral approach, 1 vertebral segment; thoracic (T7-T8) CPT Code 55106: Osteotomy of spine, posterior or posterolateral approach, 1 vertebral segment; each additional vertebral segment (T8-T9) CPT Code 36005: Stereotactic computer-assisted (navigational) procedure; spinal CPT Code 42216: Autograft for spine surgery only (includes harvesting the graft); local (e.g., ribs, spinous process, or laminar fragments) obtained from same incision CPT Code 79836: Allograft, morselized, or placement of osteopromotive material, for spine surgery only SURGEON(S): ARTURO JACKSON MD SENIOR MANAGER MERGERS [employer] ACQUISITIONS SURGEON: YASH RODARTE MD, NANCI LAM MD ANESTHESIALOGIST : Jordi Jiménez MD PhD STAFF: Jewelry Polisher: Amy Caba RN; Jazmine Mota RN; Liz Beverly RN Traveling Inventory Associate: Xena Hardin Relief Jewelry Polisher: Mic Gutierres RN Relief Scrub: Jas Jeong ANESTHESIA: General ESTIMATED BLOOD LOSS: 400 ml BLOOD RETURNED VIA CELL SAVER: None NEUROMONITORING: Yes IMPLANTS: Implant Name Type Inv. Item Serial No. Histotechnologist Supervisor Lot No. LRB No. Used [employer] SPINE SYSTEM, ALTALYNE ULTRA ZHANG PRE CONTOURED LONG 5.5MM; microDimensions REF # [id number] Zhang N/A DEPUY microDimensions [id number] Implanted BONE GRAFT CNCLS 90CC ALLOGRFT FRZDR CRUSH PRTCLT 1-10MM #1235-12 - [id number] Tissue, Human BONE GRAFT CNCLS 90CC ALLOGRFT FRZDR CRUSH PRTCLT 1-10MM #1235-12 [id number] [facility] [id number] 1 Implanted BONE GRAFT CNCLS 60CC ALLOGRFT FRZDR CRUSH PRTCLT 1-10MM #1234-12 - [id number] Tissue, Human BONE GRAFT CNCLS 60CC ALLOGRFT FRZDR CRUSH PRTCLT 1-10MM #1234-12 [id number] [facility] [id number] 1 Implanted CORRECTION BARRIOS EXP VERSE SCREW SYNTHES #[id number] - SN/A CORRECTION BARRIOS EXP VERSE SCREW SYNTHES #[id number] N/A DEPUY SYNTHES N/A 17 Implanted 4.35MM X 25MM VERSE SCREW; SYNTHES REF # [id number] SCREW N/A DEPUY SYNTHES N/A 1 Implanted SCREW BONE EXPDM VERSE 30MM 4.35MM SPINE 5.5MM ZHANG #[id number] - SN/A Spine SCREW BONE EXPDM VERSE 30MM 4.35MM SPINE 5.5MM ZHANG #[id number] N/A DEPUY SYNTHES N/A 2 Implanted SCREW 35MM 4.35MM SPNE 5.5MM ZHANG BONE EXPDM VERSE #[id number] - SN/A Spine SCREW 35MM 4.35MM SPNE 5.5MM ZHANG BONE EXPDM VERSE #[id number] N/A DEPUY SYNTHES N/A 5 Implanted SCREW BONE EXPDM VERSE 40MM 4.35MM SPINE 5.5MM ZHANG #[id number] - SN/A Spine SCREW BONE EXPDM VERSE 40MM 4.35MM SPINE 5.5MM ZHANG #[id number] N/A DEPUY SYNTHES N/A 1 Implanted SCREW BONE EXPDM VERSE 45MM 4.35MM SPINE 5.5MM ZHANG #[id number] - SN/A Spine SCREW BONE EXPDM VERSE 45MM 4.35MM SPINE 5.5MM ZHANG #[id number] N/A [employer] N/A 1 Implanted SCREW BONE EXPDM VERSE 40MM 5MM SPINE 5.5MM ZHANG #[id number] - SN/A Spine SCREW BONE EXPDM VERSE 40MM 5MM SPINE 5.5MM ZHANG #[id number] N/A DEPUY SYNTHES N/A 1 Implanted SCREW BONE EXPDM VERSE 45MM 5MM SPINE 5.5MM ZHANG #[id number] - SN/A Spine SCREW BONE EXPDM VERSE 45MM 5MM SPINE 5.5MM ZHANG #[id number] N/A DEPUY SYNTHES N/A 2 Implanted 5.0MM X 50MM VERSE SCREW; SYNTHES REF # [id number] SCREW N/A DEPUY SYNTHES N/A 4 Implanted SCREW SET EXPDM TI 1 INNER MNAXL SPINE 5.5 MM ZHANG #[id number] - SN/A Spine SCREW SET EXPDM TI 1 INNER MNAXL SPINE 5.5 MM ZHANG #[id number] N/A DEPUY SYNTHES N/A 1 Implanted PRECONTOUR ZHANG, X-LONG; [employer] REF # [id number] Zhang N/A DEPUY SYNTHES N/A 1 Implanted EXTENDED TAB WIDE BLADE HOOK; [employer] REF # [id number] Hook N/A DEPUY SYNTHES N/A 1 Implanted SPECIMENS: None. CASE LENGTH: 8 hr 30 min (cut to close) COMPLICATIONS: None. DRAINS: None DISPOSITION: The patient tolerated the procedure well and was transferred to the PACU in satisfactory condition. INDICATION: Libia Aletha Millslagle is a 18 year old female with scoliosis of significant magnitude (53 degrees from T6-L1). The minor structural curve measures 34 degrees T1-T6. History, physical exam, imaging studies and other tests not revealing any specific pathological etiology concordant with adolescent idiopathic scoliosis. Treatment options were discussed with the patient and family extensively including continuation of nonsurgical modalities versus surgery. The patient was considered as an appropriate surgical candidate considering severity of the scoliosis. Following a detailed discussion of pros and cons of surgical treatment options particularly potential benefits, risks and complications of surgery, the patient and family were still willing to undergo the current surgical procedure. Of note, the patient's physical status according to ASA ([place] Society of Anesthesiologists) is class 2. PROCEDURE TECHNIQUE IN DETAIL: On the day of the surgery, the patient was greeted in the presurgical holding area. The details of the procedure were reviewed with the patient and family. All questions were answered. They seem to understand the nature of the surgery and its potential benefits, risks and complications and agreed to proceed with the surgery. The consent forms were signed. The site of surgery was marked. The patient was initially placed in supine position and all proper lines were secured by the anesthesia team. General anesthesia was induced following endotracheal intubation. Throughout the time in the operating room, sequential compression stockings were used on the patient's legs. Franco catheter was inserted under sterile conditions. The patient was given ancef 2 gr within 60 minutes of starting the surgical incision. Ancef was redosed twice. The patient was then turned from supine position to prone position over the [facility] table with the head stabilized on a foam support, hips in slight extension and knees in 45? flexion supported by pillows. All potential pressure points including the forehead, face, shoulders, elbows, anterior superior iliac crests, patellae and feet were well padded. Sterile adhesive plastic drapes (3M Steri-Drape) were applied to delineate the surgical site. The back was prepped with chlorhexidine and alcohol (ChloraPrep) and draped in the standard fashion. Midline was marked with sterile markers and Ioban antimicrobial incise drape was applied to cover the surgical field. Time-out was held with the surgical team, anesthesia team, and ancillary staff present in the room and we all agreed on the patient's identity and planned operation. Local anesthetic of marcaine 1% with 1:200,000 epinephrine was injected in the midline skin. A midline incision of approximately 13 inches was carried out over the spinous process of T1 to L2 using a No. 10 surgical blade. The subcutaneous tissue and fascia were incised in the midline with Bovie electrocautery in coagulation mode and sharp dissection was continued through the deep fascia down to the prominence of spinous processes. A Huff elevator was used to subsequently strip off the paravertebral muscles off the posterior bony elements on both sides and expose the spinous processes, laminae, facet joints, pars interarticularis and transverse processes of T2 to L2 vertebrae. Careful dissection was carried out not to violate the facet joint at T1-T2 . Left T11 pedicle was marked using a Des and X-ray verified this was the proper segment. The self retaining retractors including straight, angular Weitlaner and Andreaon-Luli retractors were applied and maintained during the exposure and rest of the procedure. Following completion of surgical exposure, we proceeded with facetectomies using ultrasonic bone cutter (Mob[employer] - 3DVista), 1/2 inch and 1/4 inch osteotomes. Then we proceeded with biateral inferior facetectomy at T2-L2 using bone scalpel and osteotomes. This was followed by bilateral hemilaminotomy, partial facetectomy of superior facets and foraminotomy at T7-T8 and T8-T9 for Davian release. For this purpose, the spinous processes and the spinolaminar junction of T7 and T8 were partially resected with a large rongeur bilaterally. The ligamentum flavum was identified at the interlaminar space and was thinned using the rongeur. Kerrison #2 and 3 were used to release the ligamentum flavum towards each neuroforamina and the superior facet was partially resected for complete release of neuroforamina. The same technique was utilized on both sides for the mentioned segments. After each segment, Floseal, cottonoids and 4x4 gauze were used for hemostasia. This allowed for significant release of the apex of the major thoracic curve. The reference navigation frame was placed at Spinous process of T9 for the first spin and spinous process of L2 for the second spin. The O-arm Imaging Acquisition system was brought into the room and [address] scans were performed under sterile conditions to cover the full surgical field. The quality of the images were assessed and then we proceeded with the rest of surgery. Pedicle screw instrumentation was performed following the successive steps for T2-L2 in the exact same order except for the right T2 screw where an upgoing hook was placed. All of the instrumentation tools were equipped with the navigation guides. First, the starting point was determined using a combination of rongeur forceps and navigation [place] high speed bur. Navigation Lenke probe was applied for initial pedicle canalization if needed. All hassan of the pedicle canal were checked for integrity using a navigation ball tipped probe. A navigation undersized tap was applied, the canal was re-checked and a piece of cottonoid was placed at the pedicle canal entry to control for local bleeding. Following successful canalization of all pedicles bilaterally, the thoracic transverse processes were decorticated using a Rongeur in order to make space for tulips and screws were subsequently placed using a powered navigation-based screw ambulance driver paramedic. Caution was exerted not to violate the facet joint at T1-T2. All the local bone graft pieces harvested at this stage were kept and reintroduced as autograft at the end of procedure before closure. MEPs were frequently done during instrumentation after placing each screw and there was no signal change or any other concerning signs. 5.5 Altalyne zhang for the concave side and titanium for the convex side were measured and contoured manually (over-contouring for the concave side and under-contouring for the convex side). First the concave zhang was applied and fixed to the lower instrumented vertebra and was gradually and cautiously brought down to the upper instrumented vertebra (T2) using zhang pusher maintaining the sagittal plane. Towers were used for zhang reduction over the tullips and the zhang was secured in the tullips applying the set screws sequentially to avoid overloading single pedicle screws. The screws were cautiously monitored for potential pull-out during this step. Then coronal in situ benders were applied at multiple points to improve the coronal alignment of the zhang. The contralateral zhang was then implanted to the upper and lower screw tulips and subsequently to the rest of screws which were all secured applying set screws sequentially. Double zhang derotation technique was applied over the apical screws (T6-T10). MEPs were performed following implementation of each zhang and after zhang derotation. Simultaneously with derotation, distraction was performed at left T6-T10 and compression was done at right L1-L2 to further assist with three dimensional deformity correction. After full hemostasis was achieved, the wound was irrigated with normal saline. The dorsal elements including spinous processes, laminae, remnants of facet joints and transverse processes were decorticated and mixture of 150 cc of corticocancellous allograft, local autograft and 1000 mg vancomycin powder were delivered in the midline area at thoracic area and at the lateral gutters between the lumbar transverse processes. Biplanar fluoroscopic images were taken for final control. The retractors were removed and the wound was anesthetized with 20 cc of Exparel diluted with 20 cc of normal saline. We placed another gram of vancomycin powder in the wound. Deep fascia was closed using interrupted sutures of #1 Vicryl and barbed suture #2 (Quill). Neuro-monitoring check was discontinued at the end of fascia closure. There were no indication of any neuro-monitoring signal change compared to the baseline throughout the case. The subcutaneous tissue was closed using interrupted 2-0 Vicryl philip Hemovac drain was placed superficial to the fascia, brought out through a separate stab incision and secured to the skin with steristrips. Skin and subcutaneous tissue were conjointly sutured with running 2-0 barbed suture (Quill) in a subcuticular fashion followed by application of mesh dressing and liquid adhesive system (Dermabond Prineo) covered by sterile dressing. The count for needles, sponges and cottonoid patches were correct at the end of the procedure. At this time, the patient was turned from the prone to the supine position and was awakened and extubated. Postoperative neurologic exam was normal and the patient was taken to the recovery room in stable and satisfactory condition having the Franco catheter in place and the Hemovac drain under full suction. Electronically Signed by: Arturo Jackson MD Filter Operator Adult and Pediatric Orthopedic Spine Surgery [facility] ([facility]) 05/01/2024 4:46 PM Notice: Parts of this note were created using [employer] speech recognition dictation software. All attempts were made to correct any errors at the time of dictation. However, there may be some errors present in the corporate director that were inadvertently overlooked during the dictation. [facility] 2024-04-24 13:14:17 Name/ MRN / Age / Gender: Libia Jones, [id number] 18 year old female BMI: Estimated body mass index is 18.25 kg/m? as calculated from the following: Height as of 03/09/24: 1.727 m (5' 8"). Weight as of 03/09/24: 54.4 kg (120 lb). Allergies: Patient has no known allergies. Last Vitals: BP Readings from Last 1 Encounters: 03/09/24 102/69 Pulse Readings from Last 1 Encounters: 03/09/24 82 SpO2 Readings from Last 1 Encounters: 08/31/23 98% Date of Surgery: 05/01/2024 Surgeon: Arturo Jackson MD Procedure: POSTERIOR SCOLIOSIS CORRECTION (Bilateral) OR Location: [facility] Anesthesia Preop Screen (no physical exam) Anesthesia Preop: Chart Review APA questionnaire answers incorporated Anesthesia History Anesthesia History Negative per Chart Review (-) Hx of anesthetic complications (-) Hx of PONV (-) Hx of malignant hyperthermia (-) Pt reports no hx of difficult airway Previous Anesthetics/Airways Cardiovascular Cardiovascular ROS Negative per Chart Review Comments: 05/19/23 ED Visit Patient came in accompanied by mother and states: "I started having midsternal chest wall pain radiating to my left shoulder today morning. I also feel short of breath." CT negative for PE. Pleuritic chest pain. D/c home 05/19/23 EKG HR 66 Normal sinus rhythm Incomplete right bundle branch block Borderline ECG (-) Chest pain with 1-2 flights of stairs (-) Hypertension (-) Hx of cardiac stress test (-) Hx of cardiac cath (-) Angina/Chest Pain Within Last Year (-) Patient does not report prior [place] (-) CAD (-) Valvular problems/murmurs (-) Dysrhythmias (-) Pt reports prior cardiac surgery (-) No cardiovascular devices present (-) CHF Pulmonary (-) Patient does not report snoring or stopping breathing during sleep (-) Home O2 (-) COPD (+) Asthma (-) ED/Hospitilized in the last year Frequency of inhaler/nebulizer use: Was diagnosed as a child with high activity asthma, haven t used a inhaler in over 4+ during sporting activities (-) Tobacco use (-) Recent bronchitis or URI Neuro/Musculoskeletal Comments: CC Adolescent idiopathic scoliosis of thoracolumbar region (-) CVA(-) Seizures (-) Neuromuscular Disease GI/Hepatic (+) GERD (-) Liver disease Hematology Hematology ROS Negative per Chart Review (-) PE/DVT (-) Not on anti-coagulant therapy Prior Blood Transfusion: No Renal Renal ROS Negative per Chart Review (-) Renal disease (-) Dialysis Skin Skin ROS Negative per Chart Review Endo/Other Endocrine/other ROS Negative per Chart Review (-) Diabetes Mellitus Other (-) Tobacco use LINE ORDERING CLINICIAN LINE ORDERING CLINICIAN ROS Negative per Chart Review Pediatric Comments: Scanned into Media on 04/04/24 [place], [place] Patient is well and cleared for spine surgery. N/A Preoperative Medication Instructions Continue taking all prescribed medications except: CHERYL inhibitors, ARBs, diuretics, all oral diabetes medications Anticoagulant Therapy: Defer to surgeons Insulin: Take 1/2 dose the night prior to surgery. Hold on DOS. Phentermine: Alert [facility] anesthesiologist SGLT2 Inhibitors: "gliflozins" to be held for 3 days prior to elective surgeries GLP1 Agonosit: stop 7 days prior to surgery MAC Cases: Continue taking CHERYL inhibitors and ARBs ASA Classification ASA: 2 Labs: Chemistry 03/09/2024 CBC 03/09/2024 137 104 9 83 9.21 11.4 (L) 226 4.2 23 0.82 35.5 (L) eGFR: 106.5 Date: 03/09/2024 ANC: 5.47 Date: 03/09/2024 LFTs 05/19/2023 Coags AST: 17 AP: 57 Prot: 6.4 Ca: 9.7 PT: 11.6 Date: 03/09/2024 ALT: 11 T Azeem: 0.3 Alb: 3.8 PTT: 32 Date: 03/09/2024 PO4: - Date: - INR: 1.0 Date: 03/09/2024 Cardiac Endocrine & other pBNP: - Date: - A1C: - Date: - Trop I: 0.001 Date: 05/19/2023 POCT A1C: - Date: - CK: - Date: - TSH: - Date: - CKMB: - Date: - FT4: - Date: - LDL: - Date: - Lact: - Date: - Procal: - Date: - Respiratory -|-|-|-|- D-dimer: - ABG Date: - Date: - Miscellaneous Type and Screen: O NEGATIVE Antibody: Negative Date: 03/09/2024 POCT : Negative Date: 05/19/2023 Current Medications: No current facility-administered medications for this encounter. Current Outpatient Medications Medication Sig Dispense Refill famotidine 20 mg tablet Take 1 tablet by mouth in the morning and 1 tablet in the evening. 20 tablet 0 fluticasone propionate 50 mcg/actuation nasal spray 1 spray each nostril twice a day for 5 days then daily 16 g 0 Previous Surgeries: No past surgical history on file. Anesthesia Physical Exam General no apparent distress and alert and oriented x 3 Neuro/Psych neurological Nonfocal Dental no notable dental hx Abdominal GI exam normal (+) abdomen soft and benign Airway Mallampati score:II TM distance:> 5 cm Neck ROM: full Mouth opening:normal Extremity Normal extremity Pulmonary pulmonary exam normal and bilateral clear to auscultation Other Cardiovascular cardiovascular exam normalRhythm:Regular Rate: Normal Anesthesia Plan ASA Status: 2 Plan discussed during pre-op evaluation: General and TIVA Anesthetic plan on DOS: TIVA Plan to include: IV induction and arterial line Anesthesia plan discussed with: patient or b2b sales representative Post-Operative Analgesia: Recovery Plan: PACU Additional comments: UPT (-) Preop evaluation was done prior to induction of anesthesia. Patient seen in holding. Benefits and risks including but not limited to damage to teeth, lips, throat, nausea, vomiting, memory lose, postop blindness, prepheral nerve damage, damage to organs, brain, lose of life discussed. Patient or patient representativie understands and wishes to proceed with the procedure. All questions answered. Consent signed in chart. Jordi Jiménez MD, PhD Formerly [facility], [facility] 2024-04-07 10:43:12 Spoke with Mom and will touch base with her when surgery gets closer. IN [facility] Mariel Moreno [facility] 2024-04-03 12:03:50 Patient is calling concerning surgery insurance information. Roya Garcia [facility] 2024-03-10 15:25:24 Emailed excuse as requested Ivette Coronel MA [facility] 2024-03-10 08:46:49 MOP is calling needing school excuse for yesterday's visit . Please e-mail back to her . [email or web address] Destinee Baez [facility] 2024-03-09 10:45:00 Images from the original note were not included. Venipuncture collection performed by clean technique on the left anticubitus. Total of 1 attempts were made. Slight pressure and a bandage/dressing were applied to the site(s). The patient experienced no complications. The following specimens were processed according to instructions and sent to [facility] laboratories per lab order on 03/09/2024 : LT BLUE 1 SST 2 RED LAV 2 PPT DK GREEN (LiHep) DK GREEN (SodH) ANGUIANO DK BLUE (K2) DK BLUE (S) ACD Blood Culture NIPT/NTD [facility] 2024-03-09 08:45:00 Addended by: ARTURO JACKSON MD on: 03/13/2024 07:53 AM Modules accepted: Level of Service ORT-ORTHOPAEDIC SURGERY STAFF [facility]
--- NOTE | 2025-01-24 14:54 | RAD REPORT ---
EXAMINATION: Head Brain Wo Cont CLINICAL INDICATION: Female, 19 years old.SYNCOPE TECHNIQUE: Axial CT images from the skull base to the vertex without intravenous contrast. Coronal an d sagittal reformatted images were created from the data set. One or more of the following dose reduction techniques were used: Automated exposure control, adjustment of the mA and/or kV according to patient size, and/or iterative reconstruction. Unless otherwise specified, incidental findings do not require dedicated imaging follow-up. [id number]. COMPARISON: No prior exam. FINDINGS: INTRACRANIAL: No acute intracranial hemorrhage. No hydrocephalus. No mass effect or midline shift. No significant white matter disease. VASCULATURE: No visualized abnormalities in the arteries or dural venous sinuses. SCALP/SKULL: No calvarial fracture identified. No acute soft tissue abnormality. SINUSES: Trace paranasal sinus thickening. No significant mastoid fluid. IMPRESSION: No acute intracranial abnormality.
--- NOTE | 2025-01-24 14:57 | RAD REPORT ---
EXAM: Knee Left 3 View INDICATION: FALL COMPARISON: None FINDINGS: No acute fracture. No significant knee effusion. No significant focal degenerative changes. Other: N/A IMPRESSION: No acute osseous abnormality involving the imaged knee.
[2025-01-24] MEDS ORDERED: NA CHLORIDE 0.9% 1,000 ML ONE (15:00)
[2025-01-24 15:23] LABS: Specific Gravity > 1.030 (1.005-1.030); Sqamous Epithelial <5 /HPF (None Seen); Urine Bacteria <20 /HPF (<20); Urine Bilirubin NEGATIVE (Negative); Urine Blood Negative (Negative); Urine Clarity Extremely Turbid (Clear); Urine Color Yellow (Yellow); Urine Culture Reflex Order REFLEXED; Urine Glucose NEGATIVE (Negative); Urine Ketones TRACE (Negative); Urine Microscopic Reflex YN ORDER UMIC; Urine Mucus 4+ /HPF (None Seen); Urine Nitrite NEGATIVE (Negative); Urine Protein 2+ (Negative); Urine RBC None Seen /HPF (None Seen); Urine Urobilinogen 1+ (Normal); Urine WBC 20-50 /HPF (<5)
[2025-01-24 15:39] LABS: Absolute Eosinophils 0.1 K/uL (0-0.5); Absolute Lymphocytes (CBC) 1.5 K/uL (0.7-4.9); Absolute Monocytes 0.7 K/uL (0.1-1.3); Absolute Neutrophil 9.4 K/uL (1.8-8.0); Basophils % 0.4 % (0-1.3); Hematocrit 37.4 % (36.0-45.0); Hemoglobin 12.5 g/dL (12.0-15.0); Lymphocytes % 13.2 % (15.3-44.8); MCH 26.2 pg (27.0-35.0); MCHC 33.4 g/dL (32.0-36.0); MCV 78.5 fL (80-100); Monocytes % 5.9 % (3.3-12.3); Neutrophils % 79.5 % (41.7-73.7); Platelets 308 thou/uL (152-406); RBC Red Blood Cell Count 4.76 M/uL (3.86-4.86); Red Cell Distribution Width 13.5 % (12.1-15.2)
--- NOTE | 2025-01-24 15:52 | ER ---
Nurse's Notes [facility] Name: Trupti Jones Age: 19 yrs Sex: Female : 2005 Arrival Date: 01/24/2025 Time: 14:20 Bed 14 Private MD: Diagnosis: Syncope Near;UTI/ Urinary tract infection, site not specified;Bradycardia, unspecified Presentation: 01/24 14:21 Chief complaint: EMS states: PICKED UP FROM [facility] AFTER SYNCOPAL EPISODE. PT SAW db "[employer] THEN PASSED OUT".. NEW AOX4. HX OF MIGRAINES AND CP. Coronavirus screen: Client denies travel out of the [place] in the last 14 days. At this time, the client does not indicate any symptoms associated with coronavirus-19. Ebola Screen: Patient negative for fever greater than or equal to 101.5 degrees Fahrenheit, and additional compatible Ebola Virus Disease symptoms Patient denies exposure to infectious person. Patient denies travel to an Ebola-affected area in the 21 days before illness onset. No symptoms or risks identified at this time. Initial Sepsis Screen: Does the patient meet any 2 criteria? No. Patient's initial sepsis screen is negative. Does the patient have a suspected source of infection? No. Patient's initial sepsis screen is negative. Risk Assessment: Do you want to hurt yourself or someone else? Patient reports no desire to harm self or others. Onset of symptoms was January 24, 2025. Care prior to arrival: Glucose check: 102. 14:21 Method Of Arrival: EMS: [facility] db 14:21 Acuity: OTONIEL 3 db Triage Assessment: 14:25 General: Appears in no apparent distress. comfortable, Behavior is calm, cooperative. db Pain: Denies pain. Neuro: Level of Consciousness is awake, alert, obeys commands, Oriented to person, place, time, situation, Reports a syncopal episode. Respiratory: Airway is patent Respiratory effort is even, unlabored, Respiratory pattern is regular, symmetrical. Historical: - Allergies: 14:25 No Known Allergies; db - PMHx: 14:25 Asthma; Migraine; Chest pain; db - Immunization history:: Adult Immunizations unknown. - Infectious Disease History:: Denies. - Social history:: Smoking status: Patient denies any tobacco usage or history of. Screenin:33 [facility] ED Fall Risk Assessment (Adult) History of falling in the last 3 months, db including since admission No falls in past 3 months (0 pts) Confusion or Disorientation No (0 pts) Intoxicated or Sedated No (0 pts) Impaired Gait Mobility Assist Device Used No (0 pt) Altered Elimination No (0 pt) Score/Fall Risk Level 0 - 2 = Low Risk Oriented to surroundings, Maintained a safe environment. Abuse screen: Denies threats or abuse. Denies injuries from another. Nutritional screening: No deficits noted. Tuberculosis screening: No symptoms or risk factors identified. Assessment: 14:32 Reassessment: Patient appears in no apparent distress at this time. Patient and/or db family updated on plan of care and expected duration. Pain level reassessed. Patient is alert, oriented x 3, equal unlabored respirations, skin warm/dry/pink. SEE TRIAGE FOR INITIAL ASSESSMENT. 16:00 Reassessment: Patient appears in no apparent distress at this time. Patient and/or db family updated on plan of care and expected duration. Pain level reassessed. Patient is alert, oriented x 3, equal unlabored respirations, skin warm/dry/pink. General: Appears in no apparent distress. comfortable, Behavior is calm, cooperative. Respiratory: Airway is patent Respiratory effort is even, unlabored, Respiratory pattern is regular, symmetrical. 17:03 Reassessment: Patient appears in no apparent distress at this time. Patient and/or db family updated on plan of care and expected duration. Pain level reassessed. Patient is alert, oriented x 3, equal unlabored respirations, skin warm/dry/pink. Patient states feeling better. Patient states symptoms have improved. Neuro: Level of Consciousness is awake, alert, obeys commands, Oriented to person, place, time, situation. Cardiovascular: Rhythm is sinus rhythm. Vital Signs: 14:21 BP 100 / 64; Pulse 60; Resp 16; Pulse Ox 99% ; db 14:31 BP 92 / 55; Pulse 62; Resp 18; Temp 98.8(O); Pulse Ox 97% ; Weight 56.7 kg; Height 5 db ft. 9 in. ; 15:30 BP 96 / 58; Pulse 50; Resp 16; Pulse Ox 100% on R/A; db 16:30 BP 103 / 72; Pulse 56; Resp 18; Pulse Ox 100% on R/A; db 14:31 Body Mass Index 18.46 (56.70 kg, 175.26 cm) - Percentile 10.1 % db ED Course: 14:21 Patient arrived in ED. db 14:23 Rajiv Mireles MD is Attending Physician. jeanie 14:25 Triage completed. db 14:25 Arm band placed on Patient placed in an exam room. db 14:[address] via wheelchair. db 14:34 Riri Ahn, CYNTHIA is Primary Nurse. db 14:37 CT Head Brain wo Cont In Process Unspecified. EDMS 14:45 Knee Left 3 View In Process Unspecified. EDMS 15:20 Missed attempt(s): 22 gauge in right antecubital area. Bleeding controlled, band aid db applied, catheter tip intact. 15:28 Inserted saline lock: 22 gauge in right antecubital area, using aseptic technique. db Blood collected. Flushed with 10 mL NS. 15:33 Patient has correct armband on for positive identification. Bed in low position. Call db light in reach. Side rails up X 1. Client placed on continuous cardiac and pulse oximetry monitoring. NIBP monitoring applied. awake overnight monitor on. Pulse ox on. NIBP on. Warm blanket given. Pillow given. 17:03 Provided Education on: DISCHARGE AND FOLLOWUP. db 17:03 No provider procedures requiring assistance completed. IV discontinued, intact, db bleeding controlled, No redness/swelling at site. Administered Medications: 15:28 Drug: NS 0.9% IV 1000 ml IV at 1000 ml once; to be given as a bolus over 60 minutes db Route: IV; Rate: 1000 ml; Site: right antecubital; 16:52 Follow up: Response: No adverse reaction; IV Status: Completed infusion; IV Intake: db 1000ml 16:15 Drug: Rocephin IV 1 grams IV at per protocol once; Given slow IV push per pharmacy db instructions Route: IV; Rate: per protocol; Site: right antecubital; 16:52 Follow up: Response: No adverse reaction; IV Status: Completed infusion; IV Intake: 50mldb Medication: 17:03 VIS not applicable for this client. db Intake: 16:52 IV: 50ml; Total: 50ml. db 16:52 IV: 1000ml; Total: 1050ml. db Outcome: 15:51 Discharge ordered by . [facility] 17:00 Patient left the ED. ll1 17:03 Discharged to home ambulatory, with family, db 17:03 Condition: stable 17:03 Discharge instructions given to patient, family, Instructed on discharge instructions, follow up and referral plans. Prescriptions given X 1, Signatures: Dispatcher [employer] Rajiv Zuniga MD MD cha Lewis, Lynsay, RN RN ll1 Riri Ahn RN RN db
--- NOTE | 2025-01-24 15:52 | EDPHYS ---
Physician Documentation [facility] Name: Trupti Jones Age: 19 yrs Sex: Female : 2005 Arrival Date: 01/24/2025 Time: 14:20 Bed 14 Private MD: ED Physician Rajiv Mireles HPI: 01/24 15:45 This 19 yrs old Female presents to ER via EMS with complaints of Syncope. jeanie 15:45 The patient has experienced near-syncope, almost passed out, felt generally weak, felt jeanie like heart was pounding. Onset: The symptoms/episode began/occurred just prior to arrival. Duration: This was a single episode, that lasted 10 second(s). Context: the episode(s) was witnessed, by a bystander, occurred at a store. Associated injury: The patient did not suffer any apparent associated injury. Associated signs and symptoms: The patient has no apparent associated signs or symptoms. Current symptoms: Currently, the patient is not experiencing any symptoms, the patient feels back to baseline. The patient has not experienced similar symptoms in the past. Historical: - Allergies: 14:25 No Known Allergies; db - PMHx: 14:25 Asthma; Migraine; Chest pain; db - Immunization history:: Adult Immunizations unknown. - Infectious Disease History:: Denies. - Social history:: Smoking status: Patient denies any tobacco usage or history of. ROS: 15:46 Constitutional: Negative for fever, chills, and weight loss, Eyes: Negative for injury, jeanie pain, redness, and discharge, ENT: Negative for injury, pain, and discharge, Neck: Negative for injury, pain, and swelling, Cardiovascular: Negative for chest pain, palpitations, and edema, Respiratory: Negative for shortness of breath, cough, wheezing, and pleuritic chest pain, Abdomen/GI: Negative for abdominal pain, nausea, vomiting, diarrhea, and constipation, Back: Negative for injury and pain, : Negative for injury, bleeding, discharge, and swelling, MS/Extremity: Negative for injury and deformity, Skin: Negative for injury, rash, and discoloration, Psych: Negative for depression, anxiety, suicide ideation, homicidal ideation, and hallucinations, Allergy/Immunology: Negative for hives, rash, and allergies, Endocrine: Negative for neck swelling, polydipsia, polyuria, polyphagia, and marked weight changes, Hematologic/Lymphatic: Negative for swollen nodes, abnormal bleeding, and unusual bruising, 15:46 Neuro: Positive for near syncope, weakness, Exam: 15:46 Constitutional: This is a well developed, well nourished patient who is awake, alert, jeanie and in no acute distress. Head/Face: Normocephalic, atraumatic. Eyes: Pupils equal round and reactive to light, extra-ocular motions intact. Lids and lashes normal. Conjunctiva and sclera are non-icteric and not injected. Cornea within normal limits. Periorbital areas with no swelling, redness, or edema. ENT: Nares patent. No nasal discharge, no septal abnormalities noted. Tympanic membranes are normal and external auditory canals are clear. Oropharynx with no redness, swelling, or masses, exudates, or evidence of obstruction, uvula midline. Mucous membranes moist. Neck: Trachea midline, no thyromegaly or masses palpated, and no cervical lymphadenopathy. Supple, full range of motion without nuchal rigidity, or vertebral point tenderness. No Meningismus. Chest/axilla: Normal chest wall appearance and motion. Nontender with no deformity. No lesions are appreciated. Cardiovascular: Regular rate and rhythm with a normal S1 and S2. No gallops, murmurs, or rubs. Normal PMI, no JVD. No pulse deficits. Respiratory: Lungs have equal breath sounds bilaterally, clear to auscultation and percussion. No rales, rhonchi or wheezes noted. No increased work of breathing, no retractions or nasal flaring. Abdomen/GI: Soft, non-tender, with normal bowel sounds. No distension or tympany. No guarding or rebound. No evidence of tenderness throughout. Back: No spinal tenderness. No costovertebral tenderness. Full range of motion. Skin: Warm, dry with normal turgor. Normal color with no rashes, no lesions, and no evidence of cellulitis. MS/ Extremity: Pulses equal, no cyanosis. Neurovascular intact. Full, normal range of motion., bilateral aka Neuro: Awake and alert, GCS 15, oriented to person, place, time, and situation. Cranial nerves II-XII grossly intact. Motor strength 5/5 in all extremities. Sensory grossly intact. Cerebellar exam normal. Normal gait. Psych: Awake, alert, with orientation to person, place and time. Behavior, mood, and affect are within normal limits. 15:46 ECG was reviewed by the Attending Physician. Vital Signs: 14:21 BP 100 / 64; Pulse 60; Resp 16; Pulse Ox 99% ; db 14:31 BP 92 / 55; Pulse 62; Resp 18; Temp 98.8(O); Pulse Ox 97% ; Weight 56.7 kg; Height 5 db ft. 9 in. ; 15:30 BP 96 / 58; Pulse 50; Resp 16; Pulse Ox 100% on R/A; db 16:30 BP 103 / 72; Pulse 56; Resp 18; Pulse Ox 100% on R/A; db 14:31 Body Mass Index 18.46 (56.70 kg, 175.26 cm) - Percentile 10.1 % db MDM: 14:23 Medical Screening Exam initiated jeanie 15:47 Differential Diagnosis altered mental status, sepsis, flu. Differential Diagnosis: jeanie cardiac arrhythmia, drug effect, emotional response, GI bleed, , pseudo seizure, seizure, sepsis, transient ischemic attack, vasovagal episode. Data reviewed: vital signs, nurses notes, EMS record, lab test result(s), EKG, radiologic studies, CT scan. Consideration of Admission/Observation Escalation of care including admission/observation considered. I considered the following discharge prescriptions or medication management in the emergency department Medications were administered in the Emergency Department. See MAR. Independent interpretation of the following test(s) in the Emergency Department EKG: See my EKG interpretation above. Test considered but Not performed: MRI: no mri brain. Historians other than the Patient: EMS: ems well informed. Care significantly affected by the following chronic conditions: asthma, cp, miigraine. Counseling: I had a detailed discussion with the patient and/or guardian regarding the historical points, exam findings, and any diagnostic results supporting the discharge/admit diagnosis, lab results, radiology results, the need for outpatient follow up, for definitive care, a family practitioner. 01/24 14:25 Order name: CBC with Diff; Complete Time: 15:44 jeanie 01/24 14:25 Order name: Comprehensive Metabolic Panel; Complete Time: 15:59 jeanie 01/24 14:25 Order name: Urinalysis w/ reflexes; Complete Time: 15:44 jeanie 01/24 15:20 Order name: Test, Urine; Complete Time: 15:44 EDMS 01/24 15:26 Order name: Urine Culture [facility] 01/24 14:25 Order name: CT Head Brain wo Cont; Complete Time: 15:44 [facility] 01/24 14:39 Order name: Knee Left 3 View; Complete Time: 15:44 [facility] 01/24 14:25 Order name: EKG; Complete Time: 14:25 [facility] 01/24 14:25 Order name: EKG - Nurse/Tech; Complete Time: 15:33 [facility] EC:46 Rate is 54 beats/min. Rhythm is regular. QRS [place] is Normal. IA interval is normal. QRS jeanie interval is normal. QT interval is normal. No Q waves. T waves are Normal. No ST changes noted. Clinical impression: Sinus bradycardia. Interpreted by me. Reviewed by me. Administered Medications: 15:28 Drug: NS 0.9% IV 1000 ml IV at 1000 ml once; to be given as a bolus over 60 minutes db Route: IV; Rate: 1000 ml; Site: right antecubital; 16:52 Follow up: Response: No adverse reaction; IV Status: Completed infusion; IV Intake: db 1000ml 16:15 Drug: Rocephin IV 1 grams IV at per protocol once; Given slow IV push per pharmacy db instructions Route: IV; Rate: per protocol; Site: right antecubital; 16:52 Follow up: Response: No adverse reaction; IV Status: Completed infusion; IV Intake: 50mldb Disposition Summary: 01/24/25 15:51 Discharge Ordered Notes: Location: Home jeanie Problem: new jeanie Symptoms: have improved jeaine Condition: Stable jeanie Diagnosis - Syncope Near jeanie - UTI/ Urinary tract infection, site not specified jeanie - Bradycardia, unspecified jeanie Followup: jeanie - With: Private Physician - When: 2 - 3 days - Reason: Recheck today's complaints, Continuance of care, Re-evaluation by your physician Discharge Instructions: - Discharge Summary Sheet jeanie - Bradycardia, Adult jeanie - Syncope jeanie - Urinary Tract Infection, Adult jeanie - Urinary Tract Infection, Adult, Leih-ix-[id number] jeanie - Near-Syncope, Zmsk-of-Dvmn jeanie - Syncope, Eyng-jq-[id number] jeanie Forms: - Medication Reconciliation Form jeanie - Antibiotic Education jeanie - Prescription Opioid Use jeanie - Patient Portal Instructions jeanie - Leadership Thank You Letter jeanie - Work release form ld1 Prescriptions: - Cipro 250 mg Oral tablet - take 1 tablet ORAL route every 12 hours; 14 tablet; Refills: 0, Product jeanie Selection Permitted Signatures: Dispatcher [employer] Rajiv Zuniga MD MD cha Benton, Danielle RN RN db Corrections: (The following items were deleted from the chart) 15:20 14:25 TEST, SERUM+SC.LAB.BRZ ordered. KARLENE SOLER
[2025-01-24 15:56] LABS: ALT/SGPT < 14 U/L (13-56); AST/SGOT < 10 U/L (15-37); Albumin 3.4 g/dL (3.4-5.0); Albumin/Globulin Ratio 0.8 (1.1-1.8); Alkaline Phosphatase 97 U/L (45-117); BUN Blood Urea Nitrogen 11 mg/dL (7-18); Bicarbonate 26 mEq/L (21-32); Bilirubin Total 0.3 mg/dL (0.2-1.0); Globulin 4.2 g/dL (2.3-3.5); Glomerular Filtration Rate 104 ml/min (=/>90); Glucose Level 96 mg/dL (74-106); Protein, Total 7.6 g/dL (6.4-8.2); Sodium Level 136 mEq/L (136-145)
[2025-01-24] MEDS ORDERED: CEFTRIAXONE 1000 MG/VIAL ONE (16:45)
[2025-01-24] MEDS ORDERED: NA CHLORIDE 0.9% 50 ML ONE (16:46)
[2025-01-24 17:23] VITALS: BP 92/55; TEMP 98.8; O2SAT 97
== END 2025-01-24 17:00 | disposition home or self-care (01) ==
LOC: ER 14:20
DX: N39.0 Urinary tract infection, site not specified (principal); R00.1 Bradycardia, unspecified
CPT/HCPCS: 87088; 85025; 81001; 87086; 36415; 81025; 80053; 70450; 73562; J7030; J0696; 93005